=== PATIENT | female | born 1945 | race Caucasian/White ===

== ENCOUNTER 2016-11-29 07:41 | Day surgery (SDC) | payer OTHER, BC ==
[2016-11-29 09:01] LABS: BASOPHIL 0.7 % (0-2.0); EOSINOPHIL 1.5 % (0-4.5); MCH 30.3 pg (25.7-33.7); MEAN CELL VOLUME 91.7 fl (80-96); MEAN PLT VOLUME 7.8 fl (7.5-11.1); NEUTROPHILS 55.5 % (42.8-82.8); PLATELET COUNT 155 K/MM3 (134-434); RDW 15.2 % (11.6-15.6); WHITE BLOOD COUNT 4.7 K/mm3 (4.0-10.0)
[2016-11-29 09:28] LABS: ALBUMIN 3.9 g/dl (3.4-5.0); ALK PHOS 98 U/L (45-117); ANION GAP 4 (8-16); BILIRUBIN,DIRECT 0.1 mg/dL (0.0-0.2); BILIRUBIN,TOTAL 0.8 mg/dL (0.2-1.0); CALCIUM 8.7 mg/dL (8.5-10.1); CO2 31 mmol/L (21-32); GLUCOSE,RANDOM 73 mg/dL (74-106); MAGNESIUM 2.4 mg/dL (1.8-2.4); SGOT/AST 24 U/L (15-37); SGPT/ALT 35 U/L (12-78); TOT PROT 7.5 g/dl (6.4-8.2)
[2016-11-29 09:40] VITALS: PULSE 67
[2016-11-29] MEDS ORDERED: PORTA CATH FLUSH 10 ML IVPUSH ONE (09:40)
[2016-11-29] MEDS ORDERED: TRASTUZUMAB IVPB ONE (10:00)
[2016-11-29] MEDS ORDERED: SODIUM CHLORIDE IVPB ONE (10:00)
[2016-11-29] MEDS ORDERED: SODIUM CHLORIDE 250 ML IV ONE (10:30)
[2016-11-29 11:49] VITALS: BP 145/76; TEMP 97.9
== END 2016-11-29 12:12 | disposition home or self-care (01) ==
LOC: JONCCHEMO 07:41 → J7W 09:24 → JONCCHEMO 12:12
PROVIDERS: ATTEND Internal Medicine Hematology & Oncology
PROC: 3E04305 Introduction of Other Antineoplastic into Central Vein, Percutaneous Approach (ICD-10-PCS; principal; 2016-11-29)
PROC: 3E0437Z Introduction of Electrolytic and Water Balance Substance into Central Vein, Percutaneous Approach (ICD-10-PCS; 2016-11-29)
DX: Z51.11 Encounter for antineoplastic chemotherapy (principal); C16.3 Malignant neoplasm of pyloric antrum; I10 Essential (primary) hypertension; E78.00 Pure hypercholesterolemia, unspecified; M19.91 Primary osteoarthritis, unspecified site; M54.5 Low back pain
CPT/HCPCS: 96361; 96413; J9355; 36415; 80053; 80076; 82378; 83735; 85025

== ENCOUNTER 2016-12-20 07:23 | Day surgery (SDC) | payer OTHER, BC ==
[2016-12-20] MEDS ORDERED: TRASTUZUMAB IVPB ONE (08:00)
[2016-12-20] MEDS ORDERED: SODIUM CHLORIDE IVPB ONE (08:00)
[2016-12-20] MEDS ORDERED: SODIUM CHLORIDE 250 ML IV ONE (08:30)
[2016-12-20] MEDS ORDERED: PORTA CATH FLUSH 10 ML IVPUSH ONE (09:21)
[2016-12-20 09:42] LABS: BASOPHIL 0.7 % (0-2.0); EOSINOPHIL 1.2 % (0-4.5); MCH 30.1 pg (25.7-33.7); MCHC 33.4 g/dl (32.0-36.0); MEAN CELL VOLUME 89.9 fl (80-96); MEAN PLT VOLUME 7.7 fl (7.5-11.1); NEUTROPHILS 46.6 % (42.8-82.8); PLATELET COUNT 166 K/MM3 (134-434); WHITE BLOOD COUNT 5.6 K/mm3 (4.0-10.0)
[2016-12-20 10:07] LABS: ALBUMIN 3.9 g/dl (3.4-5.0); BILIRUBIN,DIRECT 0.1 mg/dL (0.0-0.2); BILIRUBIN,TOTAL 0.7 mg/dL (0.2-1.0); TOT PROT 7.5 g/dl (6.4-8.2)
[2016-12-20 11:04] LABS: ANION GAP 12 (8-16); CALCIUM 8.9 mg/dL (8.5-10.1); CO2 27 mmol/L (21-32); CREATININE 0.8 mg/dL (0.55-1.02); GLUCOSE,RANDOM 103 mg/dL (74-106); MAGNESIUM 2.2 mg/dL (1.8-2.4)
[2016-12-20 11:06] LABS: FERRITIN 12.938 ng/ml (6.9-282.5)
[2016-12-20 13:20] VITALS: BP 131/74; PULSE 60; TEMP 98
== END 2016-12-20 13:23 | disposition home or self-care (01) ==
LOC: JONCCHEMO 07:23 → J7W 09:11 → JONCCHEMO 13:23
PROVIDERS: ATTEND Internal Medicine Hematology & Oncology
PROC: 3E04305 Introduction of Other Antineoplastic into Central Vein, Percutaneous Approach (ICD-10-PCS; principal; 2016-12-20)
PROC: 3E0437Z Introduction of Electrolytic and Water Balance Substance into Central Vein, Percutaneous Approach (ICD-10-PCS; 2016-12-20)
DX: Z51.11 Encounter for antineoplastic chemotherapy (principal); C16.3 Malignant neoplasm of pyloric antrum
CPT/HCPCS: 96361; 96413; J9355; 36415; 80048; 80076; 82728; 83735; 85025

== ENCOUNTER 2017-01-10 07:28 | Day surgery (SDC) | payer OTHER, BC ==
[2017-01-10] MEDS ORDERED: SODIUM CHLORIDE IVPB ONE (08:00)
[2017-01-10] MEDS ORDERED: TRASTUZUMAB IVPB ONE (08:00)
[2017-01-10] MEDS ORDERED: SODIUM CHLORIDE 250 ML IV ONE (08:30)
[2017-01-10 09:35] LABS: BASOPHIL 0.5 % (0-2.0); EOSINOPHIL 1.6 % (0-4.5); MCH 30.3 pg (25.7-33.7); MCHC 33.6 g/dl (32.0-36.0); MEAN CELL VOLUME 90.4 fl (80-96); MEAN PLT VOLUME 7.8 fl (7.5-11.1); PLATELET COUNT 167 K/MM3 (134-434); WHITE BLOOD COUNT 6.6 K/mm3 (4.0-10.0)
[2017-01-10 10:03] LABS: ANION GAP 4 (8-16); BILIRUBIN,DIRECT 0.2 mg/dL (0.0-0.2); CALCIUM 8.9 mg/dL (8.5-10.1); CO2 31 mmol/L (21-32); CREATININE 0.8 mg/dL (0.55-1.02); GLUCOSE,RANDOM 109 mg/dL (74-106); MAGNESIUM 2.4 mg/dL (1.8-2.4); SGOT/AST 28 U/L (15-37); SGPT/ALT 40 U/L (12-78)
[2017-01-10 10:05] LABS: ALK PHOS 88 U/L (45-117); BILIRUBIN,TOTAL 0.7 mg/dL (0.2-1.0); TOT PROT 7.8 g/dl (6.4-8.2)
[2017-01-10 16:19] VITALS: BP 129/70; PULSE 64; TEMP 98.1
== END 2017-01-10 12:30 | disposition home or self-care (01) ==
LOC: JONCCHEMO 07:28 → J7W 11:02 → JONCCHEMO 12:30
PROVIDERS: ATTEND Internal Medicine Hematology & Oncology
DX: Z51.11 Encounter for antineoplastic chemotherapy (principal); C16.3 Malignant neoplasm of pyloric antrum
CPT/HCPCS: 36415; 80053; 80076; 83735; 85025; 96361; 96413; J9355

== ENCOUNTER 2017-01-31 07:41 | Day surgery (SDC) | payer OTHER, BC ==
[2017-01-31 08:58] LABS: BASOPHIL 0.6 % (0-2.0); EOSINOPHIL 1.7 % (0-4.5); MCH 29.5 pg (25.7-33.7); MCHC 32.7 g/dl (32.0-36.0); MEAN CELL VOLUME 90.2 fl (80-96); MEAN PLT VOLUME 7.7 fl (7.5-11.1); NEUTROPHILS 44.4 % (42.8-82.8); PLATELET COUNT 183 K/MM3 (134-434); RDW 14.9 % (11.6-15.6); WHITE BLOOD COUNT 5.1 K/mm3 (4.0-10.0)
[2017-01-31 09:25] LABS: ANION GAP 5 (8-16); CALCIUM 9.3 mg/dL (8.5-10.1); CO2 33 mmol/L (21-32); CREATININE 0.9 mg/dL (0.55-1.02); GLUCOSE,RANDOM 112 mg/dL (74-106)
[2017-01-31 09:27] LABS: ALBUMIN 4.1 g/dl (3.4-5.0); ALK PHOS 107 U/L (45-117); BILIRUBIN,DIRECT < 0.2 mg/dL (0.0-0.2); BILIRUBIN,TOTAL 0.6 mg/dL (0.2-1.0); SGOT/AST 28 U/L (15-37); SGPT/ALT 45 U/L (12-78); TOT PROT 7.9 g/dl (6.4-8.2)
[2017-01-31] MEDS ORDERED: SODIUM CHLORIDE IVPB ONE (10:00)
[2017-01-31] MEDS ORDERED: TRASTUZUMAB IVPB ONE (10:00)
[2017-01-31] MEDS ORDERED: SODIUM CHLORIDE 250 ML IV ONE (10:00)
[2017-01-31 10:59] VITALS: TEMP 97.4
[2017-01-31] MEDS ORDERED: POTASSIUM CHLORIDE TABS 20 MEQ TABLET.ER (FP) PO ONE (11:00)
[2017-01-31] MEDS ORDERED: PORTA CATH FLUSH 10 ML IVPUSH ONE (11:42)
[2017-01-31 12:43] VITALS: BP 105/65; PULSE 58
== END 2017-01-31 12:45 | disposition home or self-care (01) ==
LOC: JONCCHEMO 07:41 → J7W 08:47 → JONCCHEMO 12:45
PROVIDERS: ATTEND Internal Medicine Hematology & Oncology
DX: Z51.11 Encounter for antineoplastic chemotherapy (principal); C34.11 Malignant neoplasm of upper lobe, right bronchus or lung
CPT/HCPCS: 36415; 80048; 80076; 82378; 85025; 96361; 96413; J9355

== ENCOUNTER 2017-02-21 07:24 | Day surgery (SDC) | payer OTHER, BC ==
[2017-02-21] MEDS ORDERED: SODIUM CHLORIDE IVPB ONE (08:00)
[2017-02-21] MEDS ORDERED: TRASTUZUMAB IVPB ONE (08:00)
[2017-02-21] MEDS ORDERED: SODIUM CHLORIDE 250 ML IV ONE (08:30)
[2017-02-21 09:02] LABS: BASOPHIL 0.5 % (0-2.0); EOSINOPHIL 1.3 % (0-4.5); MCH 29.9 pg (25.7-33.7); MCHC 33.2 g/dl (32.0-36.0); MEAN CELL VOLUME 89.8 fl (80-96); MEAN PLT VOLUME 7.7 fl (7.5-11.1); NEUTROPHILS 43.5 % (42.8-82.8); PLATELET COUNT 184 K/MM3 (134-434); RDW 14.7 % (11.6-15.6); WHITE BLOOD COUNT 6.3 K/mm3 (4.0-10.0)
[2017-02-21 09:32] LABS: ALK PHOS 106 U/L (45-117); ANION GAP 6 (8-16); BILIRUBIN,DIRECT 0.1 mg/dL (0.0-0.2); BILIRUBIN,TOTAL 0.6 mg/dL (0.2-1.0); CALCIUM 9.1 mg/dL (8.5-10.1); CO2 29 mmol/L (21-32); CREATININE 0.9 mg/dL (0.55-1.02); GLUCOSE,RANDOM 112 mg/dL (74-106); MAGNESIUM 2.3 mg/dL (1.8-2.4); SGOT/AST 29 U/L (15-37); SGPT/ALT 41 U/L (12-78); TOT PROT 7.9 g/dl (6.4-8.2)
[2017-02-21 12:53] VITALS: BP 135/65; PULSE 60; TEMP 97.9
[2017-02-21] MEDS ORDERED: PORTA CATH FLUSH 10 ML IVPUSH ONE (12:53)
== END 2017-02-21 12:45 | disposition home or self-care (01) ==
LOC: JONCCHEMO 07:24 → J7W 09:47 → JONCCHEMO 12:45
PROVIDERS: ATTEND Internal Medicine Hematology & Oncology
PROC: 3E0S305 Introduction of Other Antineoplastic into Epidural Space, Percutaneous Approach (ICD-10-PCS; principal; 2017-02-21)
PROC: 3E0437Z Introduction of Electrolytic and Water Balance Substance into Central Vein, Percutaneous Approach (ICD-10-PCS; 2017-02-21)
DX: Z51.11 Encounter for antineoplastic chemotherapy (principal); C16.3 Malignant neoplasm of pyloric antrum
CPT/HCPCS: 36415; 80053; 80076; 83735; 85025; 96361; 96413; J9355

== ENCOUNTER 2017-03-14 07:27 | Day surgery (SDC) | payer OTHER, BC ==
[2017-03-14 08:54] LABS: BASOPHIL 0.6 % (0-2.0); EOSINOPHIL 1.3 % (0-4.5); MCH 29.6 pg (25.7-33.7); MEAN CELL VOLUME 89.9 fl (80-96); MEAN PLT VOLUME 7.9 fl (7.5-11.1); NEUTROPHILS 50.2 % (42.8-82.8); PLATELET COUNT 197 K/MM3 (134-434); RDW 15.2 % (11.6-15.6); WHITE BLOOD COUNT 6.1 K/mm3 (4.0-10.0)
[2017-03-14 09:17] LABS: ANION GAP 7 (8-16); BILIRUBIN,DIRECT 0.1 mg/dL (0.0-0.2); BILIRUBIN,TOTAL 0.6 mg/dL (0.2-1.0); CALCIUM 9.1 mg/dL (8.5-10.1); CO2 31 mmol/L (21-32); CREATININE 0.9 mg/dL (0.55-1.02); GLUCOSE,RANDOM 101 mg/dL (74-106); MAGNESIUM 2.6 mg/dL (1.8-2.4); SGPT/ALT 37 U/L (12-78)
[2017-03-14 09:25] LABS: ALK PHOS 103 U/L (45-117); SGOT/AST 24 U/L (15-37)
[2017-03-14 09:28] VITALS: TEMP 97.9
[2017-03-14] MEDS ORDERED: SODIUM CHLORIDE IVPB ONE (10:00)
[2017-03-14] MEDS ORDERED: TRASTUZUMAB IVPB ONE (10:00)
[2017-03-14] MEDS ORDERED: SODIUM CHLORIDE 250 ML IV ONE (10:30)
[2017-03-14] MEDS ORDERED: PORTA CATH FLUSH 10 ML IVPUSH ONE (10:30)
[2017-03-14 11:22] VITALS: BP 126/79; PULSE 55
== END 2017-03-14 11:15 | disposition home or self-care (01) ==
LOC: JONCCHEMO 07:27 → J7W 09:08 → JONCCHEMO 11:15
PROVIDERS: ATTEND Internal Medicine Hematology & Oncology
DX: Z51.11 Encounter for antineoplastic chemotherapy (principal); C16.3 Malignant neoplasm of pyloric antrum
CPT/HCPCS: 36415; 80053; 80076; 82378; 83735; 85025; 96361; 96413; J9355

== ENCOUNTER 2017-04-04 07:20 | Day surgery (SDC) | payer OTHER, BC ==
[2017-04-04 09:17] LABS: BASOPHIL 0.6 % (0-2.0); EOSINOPHIL 1.5 % (0-4.5); MCH 29.7 pg (25.7-33.7); MCHC 33.6 g/dl (32.0-36.0); MEAN CELL VOLUME 88.5 fl (80-96); MEAN PLT VOLUME 7.7 fl (7.5-11.1); NEUTROPHILS 51.6 % (42.8-82.8); PLATELET COUNT 174 K/MM3 (134-434); RDW 15.2 % (11.6-15.6); WHITE BLOOD COUNT 6.5 K/mm3 (4.0-10.0)
[2017-04-04 09:52] LABS: ALK PHOS 102 U/L (45-117); ANION GAP 10 (8-16); BILIRUBIN,DIRECT 0.2 mg/dL (0.0-0.2); BILIRUBIN,TOTAL 0.8 mg/dL (0.2-1.0); CALCIUM 8.8 mg/dL (8.5-10.1); CO2 28 mmol/L (21-32); CREATININE 0.8 mg/dL (0.55-1.02); GLUCOSE,RANDOM 97 mg/dL (74-106); MAGNESIUM 2.4 mg/dL (1.8-2.4); SGOT/AST 26 U/L (15-37); SGPT/ALT 33 U/L (12-78); TOT PROT 7.8 g/dl (6.4-8.2)
[2017-04-04] MEDS ORDERED: SODIUM CHLORIDE IVPB ONE (10:00)
[2017-04-04] MEDS ORDERED: TRASTUZUMAB IVPB ONE (10:00)
[2017-04-04 10:10] VITALS: TEMP 97.6
[2017-04-04] MEDS ORDERED: PORTA CATH FLUSH 10 ML IVPUSH PRN (10:10)
[2017-04-04] MEDS ORDERED: SODIUM CHLORIDE 250 ML IV ONE (10:30)
[2017-04-04 11:48] VITALS: BP 157/57; PULSE 65
== END 2017-04-04 11:35 | disposition home or self-care (01) ==
LOC: JONCCHEMO 07:20 → J7W 09:48 → JONCCHEMO 11:35
PROVIDERS: ATTEND Internal Medicine Hematology & Oncology
DX: Z51.11 Encounter for antineoplastic chemotherapy (principal); C16.3 Malignant neoplasm of pyloric antrum
CPT/HCPCS: 36415; 80053; 80076; 83735; 85025; 96361; 96413; J9355

== ENCOUNTER 2017-04-25 07:16 | Day surgery (SDC) | payer OTHER, BC ==
[2017-04-25] MEDS ORDERED: TRASTUZUMAB IVPB ONE (08:00)
[2017-04-25] MEDS ORDERED: SODIUM CHLORIDE IVPB ONE (08:00)
[2017-04-25] MEDS ORDERED: SODIUM CHLORIDE 250 ML IV ONE (08:30)
[2017-04-25 08:50] LABS: BASOPHIL 0.7 % (0-2.0); EOSINOPHIL 1.6 % (0-4.5); MCH 29.8 pg (25.7-33.7); MCHC 33.3 g/dl (32.0-36.0); MEAN CELL VOLUME 89.5 fl (80-96); NEUTROPHILS 45.7 % (42.8-82.8); PLATELET COUNT 184 K/MM3 (134-434); RDW 14.7 % (11.6-15.6); WHITE BLOOD COUNT 5.9 K/mm3 (4.0-10.0)
[2017-04-25 09:19] LABS: ALBUMIN 4.1 g/dl (3.4-5.0); ALK PHOS 106 U/L (45-117); ANION GAP 8 (8-16); BILIRUBIN,DIRECT < 0.2 mg/dL (0.0-0.2); BILIRUBIN,TOTAL 0.6 mg/dL (0.2-1.0); CALCIUM 8.8 mg/dL (8.5-10.1); CO2 29 mmol/L (21-32); CREATININE 0.8 mg/dL (0.55-1.02); GLUCOSE,RANDOM 92 mg/dL (74-106); MAGNESIUM 2.5 mg/dL (1.8-2.4); SGOT/AST 24 U/L (15-37); SGPT/ALT 35 U/L (12-78); TOT PROT 8.1 g/dl (6.4-8.2)
[2017-04-25 15:25] VITALS: TEMP 97.3
[2017-04-25 15:34] VITALS: BP 127/67; PULSE 50
[2017-04-25] MEDS ORDERED: PORTA CATH FLUSH 10 ML IVPUSH ONE (15:34)
== END 2017-04-25 11:50 | disposition home or self-care (01) ==
LOC: JONCCHEMO 07:16 → J7W 09:54 → JONCCHEMO 11:50
PROVIDERS: ATTEND Internal Medicine Hematology & Oncology
DX: Z51.11 Encounter for antineoplastic chemotherapy (principal); C16.3 Malignant neoplasm of pyloric antrum
CPT/HCPCS: 36415; 80053; 80076; 83735; 85025; 96361; 96413; J9355

== ENCOUNTER 2017-05-15 07:24 | Day surgery (SDC) | payer OTHER, BC ==
[2017-05-15] MEDS ORDERED: TRASTUZUMAB IVPB ONE (08:00)
[2017-05-15] MEDS ORDERED: SODIUM CHLORIDE IVPB ONE (08:00)
[2017-05-15] MEDS ORDERED: SODIUM CHLORIDE 250 ML IV ONE (08:30)
[2017-05-15 08:59] LABS: BASOPHIL 0.7 % (0-2.0); EOSINOPHIL 1.5 % (0-4.5); MCH 29.8 pg (25.7-33.7); MEAN CELL VOLUME 90.3 fl (80-96); MEAN PLT VOLUME 7.8 fl (7.5-11.1); NEUTROPHILS 48.7 % (42.8-82.8); PLATELET COUNT 197 K/MM3 (134-434); RDW 15.7 % (11.6-15.6); WHITE BLOOD COUNT 6.5 K/mm3 (4.0-10.0)
[2017-05-15 09:24] LABS: ALBUMIN 3.9 g/dl (3.4-5.0); ALK PHOS 104 U/L (45-117); ANION GAP 5 (8-16); BILIRUBIN,DIRECT 0.2 mg/dL (0.0-0.2); CALCIUM 8.7 mg/dL (8.5-10.1); CO2 28 mmol/L (21-32); CREATININE 0.9 mg/dL (0.55-1.02); GLUCOSE,RANDOM 115 mg/dL (74-106); MAGNESIUM 2.5 mg/dL (1.8-2.4); SGOT/AST 21 U/L (15-37); SGPT/ALT 36 U/L (12-78); TOT PROT 7.9 g/dl (6.4-8.2)
[2017-05-15 09:34] VITALS: TEMP 97.9
[2017-05-15] MEDS ORDERED: PORTA CATH FLUSH 10 ML IVPUSH ONE (09:37)
[2017-05-15 11:17] VITALS: BP 104/57; PULSE 62
== END 2017-05-15 11:20 | disposition home or self-care (01) ==
LOC: JONCCHEMO 07:24 → J7W 09:24 → JONCCHEMO 11:20
PROVIDERS: ATTEND Internal Medicine Hematology & Oncology
DX: Z51.11 Encounter for antineoplastic chemotherapy (principal); C16.3 Malignant neoplasm of pyloric antrum
CPT/HCPCS: 36415; 80053; 80076; 83735; 85025; 96361; 96413; J9355

== ENCOUNTER 2017-06-06 07:29 | Day surgery (SDC) | payer OTHER, BC ==
[2017-06-06 09:24] LABS: BASO % 0.5 % (0-2.0); EOS # 0.1 #; LYMPH # 2.6; MCH 29.4 pg (25.7-33.7); MCHC 32.2 g/dl (32.0-36.0); MEAN CELL VOLUME 91.2 fl (80-96); MEAN PLT VOLUME 8.3 fl (7.5-11.1); MONO # 0.4 #; NEUT # 3.5 #; NEUT % 52.3 % (42.8-82.8); PLATELET COUNT 196 K/MM3 (134-434); RDW 15.7 % (11.6-15.6); WHITE BLOOD COUNT 6.6 K/mm3 (4.0-10.0)
[2017-06-06 09:54] LABS: ALBUMIN 4.1 g/dl (3.4-5.0); ANION GAP 7 (8-16); BILIRUBIN,DIRECT < 0.2 mg/dL (0.0-0.2); CALCIUM 8.8 mg/dL (8.5-10.1); CO2 30 mmol/L (21-32); GLUCOSE,RANDOM 96 mg/dL (74-106); MAGNESIUM 2.1 mg/dL (1.8-2.4); SGOT/AST 25 U/L (15-37); SGPT/ALT 40 U/L (12-78)
[2017-06-06 09:56] LABS: ALK PHOS 107 U/L (45-117); BILIRUBIN,TOTAL 0.6 mg/dL (0.2-1.0); TOT PROT 8.1 g/dl (6.4-8.2)
[2017-06-06] MEDS ORDERED: SODIUM CHLORIDE IVPB ONE (10:00)
[2017-06-06] MEDS ORDERED: TRASTUZUMAB IVPB ONE (10:00)
[2017-06-06 10:15] VITALS: PULSE 57; TEMP 98.2
[2017-06-06] MEDS ORDERED: SODIUM CHLORIDE 250 ML IV ONE (10:30)
[2017-06-06] MEDS ORDERED: PORTA CATH FLUSH 10 ML IVPUSH ONE (10:49)
[2017-06-06 12:57] VITALS: BP 129/69
== END 2017-06-06 11:55 | disposition home or self-care (01) ==
LOC: JONCCHEMO 07:29 → J7W 09:41 → JONCCHEMO 11:55
PROVIDERS: ATTEND Internal Medicine Hematology & Oncology
DX: Z51.11 Encounter for antineoplastic chemotherapy (principal); C16.3 Malignant neoplasm of pyloric antrum
CPT/HCPCS: 36415; 80053; 80076; 83735; 85025; 96361; 96413; J9355

== ENCOUNTER 2017-06-27 07:25 | Day surgery (SDC) | payer OTHER, BC ==
[2017-06-27] MEDS ORDERED: SODIUM CHLORIDE IVPB ONE (10:00)
[2017-06-27] MEDS ORDERED: TRASTUZUMAB IVPB ONE (10:00)
[2017-06-27 10:24] LABS: BASO % 0.5 % (0-2.0); EOS % 1.2 % (0-4.5); HEMATOCRIT 35.6 % (32.4-45.2); HEMOGLOBIN 11.6 GM/dL (10.7-15.3); LYMPH % 42.1 % (8-40); MCH 29.6 pg (25.7-33.7); MCHC 32.5 g/dl (32.0-36.0); MEAN CELL VOLUME 91.2 fl (80-96); MEAN PLT VOLUME 8.6 fl (7.5-11.1); NEUT % 48.2 % (42.8-82.8); PLATELET COUNT 171 K/MM3 (134-434); RDW 15.4 % (11.6-15.6); WHITE BLOOD COUNT 6.4 K/mm3 (4.0-10.0)
[2017-06-27] MEDS ORDERED: SODIUM CHLORIDE 250 ML IV ONE (10:30)
[2017-06-27 11:17] LABS: ANION GAP 7 (8-16); BLOOD UREA NITROGEN 13 mg/dL (7-18); CALCIUM 8.9 mg/dL (8.5-10.1); CHLORIDE 106 mmol/L (98-107); CO2 29 mmol/L (21-32); CREATININE 0.9 mg/dL (0.55-1.02); GLUCOSE,RANDOM 89 mg/dL (74-106); POTASSIUM 3.3 mmol/L (3.5-5.1); SODIUM 142 mmol/L (136-145)
[2017-06-27 11:21] LABS: ALK PHOS 100 U/L (45-117); BILIRUBIN,DIRECT < 0.2 mg/dL (0.0-0.2); BILIRUBIN,TOTAL 0.6 mg/dL (0.2-1.0); SGOT/AST 28 U/L (15-37); SGPT/ALT 41 U/L (12-78)
[2017-06-27 15:19] VITALS: BP 144/75; PULSE 66; TEMP 97.4
[2017-06-27] MEDS ORDERED: PORTA CATH FLUSH 10 ML IVPUSH ONE (15:19)
== END 2017-06-27 12:15 | disposition home or self-care (01) ==
LOC: JONCCHEMO 07:25 → J7W 09:15 → JONCCHEMO 12:15
PROVIDERS: ATTEND Internal Medicine Hematology & Oncology
DX: Z51.11 Encounter for antineoplastic chemotherapy (principal); C16.3 Malignant neoplasm of pyloric antrum
CPT/HCPCS: 36415; 80048; 80076; 82378; 85025; 96361; 96413; J9355

== ENCOUNTER 2017-07-18 07:22 | Day surgery (SDC) | payer OTHER, BC ==
[2017-07-18] MEDS ORDERED: TRASTUZUMAB IVPB ONE (08:00)
[2017-07-18] MEDS ORDERED: SODIUM CHLORIDE IVPB ONE (08:00)
[2017-07-18] MEDS ORDERED: SODIUM CHLORIDE 250 ML IV ONE (08:30)
[2017-07-18 08:51] LABS: BASO % 0.7 % (0-2.0); HEMATOCRIT 38.9 % (32.4-45.2); HEMOGLOBIN 12.8 GM/dL (10.7-15.3); LYMPH % 44.2 % (8-40); MCH 29.7 pg (25.7-33.7); MEAN CELL VOLUME 89.9 fl (80-96); MEAN PLT VOLUME 8.3 fl (7.5-11.1); MONO % 7.1 % (3.8-10.2); PLATELET COUNT 169 K/MM3 (134-434); RBC 4.33 M/mm3 (3.60-5.2); RDW 15.3 % (11.6-15.6); WHITE BLOOD COUNT 7.1 K/mm3 (4.0-10.0)
[2017-07-18 09:22] LABS: ALBUMIN 4.3 g/dl (3.4-5.0); ANION GAP 7 (8-16); BILIRUBIN,DIRECT 0.2 mg/dL (0.0-0.2); BILIRUBIN,TOTAL 0.7 mg/dL (0.2-1.0); BLOOD UREA NITROGEN 9 mg/dL (7-18); CALCIUM 8.7 mg/dL (8.5-10.1); CHLORIDE 102 mmol/L (98-107); CO2 31 mmol/L (21-32); CREATININE 1.2 mg/dL (0.55-1.02); GLUCOSE,RANDOM 97 mg/dL (74-106); MAGNESIUM 2.1 mg/dL (1.8-2.4); SGOT/AST 25 U/L (15-37); SGPT/ALT 42 U/L (12-78); SODIUM 140 mmol/L (136-145); TOT PROT 8.2 g/dl (6.4-8.2)
[2017-07-18 09:23] LABS: ALK PHOS 105 U/L (45-117)
[2017-07-18] MEDS: POTASSIUM CHLORIDE TABS 20 MEQ TABLET.ER (FP) PO SCH ×2 (10:40→11:40)
[2017-07-18 11:56] VITALS: TEMP 98.2
[2017-07-18] MEDS ORDERED: PORTA CATH FLUSH 10 ML IVPUSH ONE (11:56)
[2017-07-18 17:13] VITALS: BP 156/67; PULSE 72
[2017-07-19 09:39] LABS: URINE APPEARANCE CLEAR; URINE BILIRUBIN NEGATIVE (NEGATIVE); URINE BLOOD NEGATIVE (NEGATIVE); URINE COLOR STRAW; URINE GLUCOSE (UA) NEGATIVE (NEGATIVE); URINE KETONE NEGATIVE (NEGATIVE); URINE LEUK ESTERASE NEGATIVE (NEGATIVE); URINE NITRITE NEGATIVE (NEGATIVE); URINE PROTEIN NEGATIVE (NEGATIVE); URINE UROBILINOGEN NEGATIVE mg/dL (0.2-1.0)
== END 2017-07-18 12:15 | disposition home or self-care (01) ==
LOC: JONCCHEMO 07:22 → J7W 09:28 → JONCCHEMO 12:15
PROVIDERS: ATTEND Internal Medicine Hematology & Oncology
DX: Z51.11 Encounter for antineoplastic chemotherapy (principal); C16.3 Malignant neoplasm of pyloric antrum
CPT/HCPCS: 36415; 80053; 80076; 81003; 82378; 83735; 85025; 87086; 96361; 96413; J9355

== ENCOUNTER 2017-08-08 07:30 | Day surgery (SDC) | payer OTHER, BC ==
[2017-08-08 09:07] LABS: BASO % 0.5 % (0-2.0); EOS % 1.1 % (0-4.5); HEMOGLOBIN 12.1 GM/dL (10.7-15.3); LYMPH % 44.4 % (8-40); MCH 30.6 pg (25.7-33.7); MCHC 33.8 g/dl (32.0-36.0); MEAN CELL VOLUME 90.7 fl (80-96); MONO % 8.1 % (3.8-10.2); NEUT % 45.9 % (42.8-82.8); PLATELET COUNT 183 K/MM3 (134-434); RBC 3.97 M/mm3 (3.60-5.2); RDW 14.9 % (11.6-15.6); WHITE BLOOD COUNT 7.1 K/mm3 (4.0-10.0)
[2017-08-08 09:39] VITALS: TEMP 97.4
[2017-08-08] MEDS ORDERED: PORTA CATH FLUSH 10 ML IVPUSH ONE (09:39)
[2017-08-08 10:00] LABS: ALBUMIN 4.2 g/dl (3.4-5.0); ANION GAP 5 (8-16); BLOOD UREA NITROGEN 17 mg/dL (7-18); CALCIUM 9.1 mg/dL (8.5-10.1); CHLORIDE 103 mmol/L (98-107); CO2 32 mmol/L (21-32); GLUCOSE,RANDOM 82 mg/dL (74-106); POTASSIUM 3.6 mmol/L (3.5-5.1); SODIUM 140 mmol/L (136-145)
[2017-08-08] MEDS ORDERED: SODIUM CHLORIDE IVPB ONE (10:00)
[2017-08-08] MEDS ORDERED: TRASTUZUMAB IVPB ONE (10:00)
[2017-08-08 10:04] LABS: ALK PHOS 96 U/L (45-117); BILIRUBIN,DIRECT < 0.2 mg/dL (0.0-0.2); BILIRUBIN,TOTAL 0.5 mg/dL (0.2-1.0); CREATININE 0.9 mg/dL (0.55-1.02); SGOT/AST 24 U/L (15-37); SGPT/ALT 34 U/L (12-78); TOT PROT 7.9 g/dl (6.4-8.2)
[2017-08-08] MEDS ORDERED: SODIUM CHLORIDE 250 ML IV ONE (10:30)
[2017-08-08 11:01] VITALS: BP 104/52; PULSE 61
== END 2017-08-08 11:02 | disposition home or self-care (01) ==
LOC: JONCCHEMO 07:30 → J7W 10:18 → JONCCHEMO 11:02
PROVIDERS: ATTEND Internal Medicine Hematology & Oncology
PROC: 3E04305 Introduction of Other Antineoplastic into Central Vein, Percutaneous Approach (ICD-10-PCS; principal; 2017-08-08)
PROC: 3E0437Z Introduction of Electrolytic and Water Balance Substance into Central Vein, Percutaneous Approach (ICD-10-PCS; 2017-08-08)
DX: Z51.11 Encounter for antineoplastic chemotherapy (principal); C16.2 Malignant neoplasm of body of stomach
CPT/HCPCS: 36415; 80053; 80076; 85025; 96361; 96413; J9355

== ENCOUNTER 2017-09-30 07:42 | Day surgery (SDC) | payer OTHER, BC ==
[2017-09-30] MEDS ORDERED: TRASTUZUMAB IVPB ONE (10:00)
[2017-09-30] MEDS ORDERED: SODIUM CHLORIDE IVPB ONE (10:00)
[2017-09-30] MEDS ORDERED: SODIUM CHLORIDE 250 ML IV ONE (10:30)
[2017-09-30 10:52] LABS: BASO % 0.4 % (0-2.0); EOS % 1.6 % (0-4.5); HEMATOCRIT 35.5 % (32.4-45.2); HEMOGLOBIN 12.1 GM/dL (10.7-15.3); LYMPH % 42.1 % (8-40); MCH 31.1 pg (25.7-33.7); MCHC 33.9 g/dl (32.0-36.0); MEAN CELL VOLUME 91.7 fl (80-96); MEAN PLT VOLUME 9.1 fl (7.5-11.1); MONO % 6.5 % (3.8-10.2); NEUT % 49.4 % (42.8-82.8); PLATELET COUNT 179 K/MM3 (134-434); RBC 3.87 M/mm3 (3.60-5.2); RDW 14.9 % (11.6-15.6); WHITE BLOOD COUNT 5.7 K/mm3 (4.0-10.0)
[2017-09-30 11:09] LABS: ALBUMIN 3.9 g/dl (3.4-5.0); ANION GAP 5 (8-16); BILIRUBIN,DIRECT < 0.2 mg/dL (0.0-0.2); BILIRUBIN,TOTAL 0.5 mg/dL (0.2-1.0); BLOOD UREA NITROGEN 12 mg/dL (7-18); CALCIUM 8.6 mg/dL (8.5-10.1); CHLORIDE 105 mmol/L (98-107); CO2 31 mmol/L (21-32); CREATININE 0.8 mg/dL (0.55-1.02); GLUCOSE,RANDOM 111 mg/dL (74-106); MAGNESIUM 2.1 mg/dL (1.8-2.4); POTASSIUM 3.2 mmol/L (3.5-5.1); SGOT/AST 24 U/L (15-37); SGPT/ALT 32 U/L (12-78); SODIUM 141 mmol/L (136-145)
[2017-09-30 11:10] LABS: ALK PHOS 92 U/L (45-117)
[2017-09-30] MEDS ORDERED: PORTA CATH FLUSH 10 ML IVPUSH ONE (12:36)
[2017-09-30 15:02] VITALS: BP 148/93; PULSE 79; TEMP 97.9
== END 2017-09-30 13:15 | disposition home or self-care (01) ==
LOC: JONCCHEMO 07:42 → J7W 10:59 → JONCCHEMO 13:15
PROVIDERS: ATTEND Internal Medicine Hematology & Oncology
DX: Z51.11 Encounter for antineoplastic chemotherapy (principal); C16.2 Malignant neoplasm of body of stomach
CPT/HCPCS: 36415; 80053; 80076; 82378; 83735; 85025; 96361; 96413; J9355

== ENCOUNTER 2017-10-21 07:22 | Day surgery (SDC) | payer OTHER, BC ==
[2017-10-21] MEDS ORDERED: SODIUM CHLORIDE IVPB ONE (08:00)
[2017-10-21] MEDS ORDERED: TRASTUZUMAB IVPB ONE (08:00)
[2017-10-21] MEDS ORDERED: SODIUM CHLORIDE 250 ML IV ONE (08:30)
[2017-10-21 10:15] LABS: BASO % 0.4 % (0-2.0); EOS % 1.9 % (0-4.5); HEMOGLOBIN 11.9 GM/dL (10.7-15.3); LYMPH % 45.4 % (8-40); MCH 31.2 pg (25.7-33.7); MEAN CELL VOLUME 91.8 fl (80-96); MEAN PLT VOLUME 8.4 fl (7.5-11.1); MONO % 6.8 % (3.8-10.2); NEUT % 45.5 % (42.8-82.8); PLATELET COUNT 175 K/MM3 (134-434); RBC 3.81 M/mm3 (3.60-5.2); RDW 15.3 % (11.6-15.6); WHITE BLOOD COUNT 5.7 K/mm3 (4.0-10.0)
[2017-10-21 10:43] LABS: ALBUMIN 4.3 g/dl (3.4-5.0); ANION GAP 9 (8-16); BILIRUBIN,TOTAL 0.5 mg/dL (0.2-1.0); BLOOD UREA NITROGEN 13 mg/dL (7-18); CALCIUM 9.3 mg/dL (8.5-10.1); CHLORIDE 103 mmol/L (98-107); CO2 30 mmol/L (21-32); CREATININE 0.9 mg/dL (0.55-1.02); GLUCOSE,RANDOM 92 mg/dL (74-106); POTASSIUM 3.6 mmol/L (3.5-5.1); SGOT/AST 27 U/L (15-37); SGPT/ALT 38 U/L (12-78); SODIUM 142 mmol/L (136-145); TOT PROT 7.8 g/dl (6.4-8.2)
[2017-10-21 10:44] LABS: ALK PHOS 91 U/L (45-117)
[2017-10-21 19:14] VITALS: TEMP 98
[2017-10-21 19:22] VITALS: BP 133/84; PULSE 76
[2017-10-21] MEDS ORDERED: PORTA CATH FLUSH 10 ML IVPUSH ONE (19:22)
== END 2017-10-21 13:00 | disposition home or self-care (01) ==
LOC: JONCCHEMO 07:22 → J7W 10:10 → JONCCHEMO 13:00
PROVIDERS: ATTEND Internal Medicine Hematology & Oncology
DX: Z51.11 Encounter for antineoplastic chemotherapy (principal); C16.2 Malignant neoplasm of body of stomach
CPT/HCPCS: 36415; 80053; 85025; 96361; 96413; J9355

== ENCOUNTER 2017-11-11 07:27 | Day surgery (SDC) | payer OTHER, BC ==
[2017-11-11] MEDS ORDERED: TRASTUZUMAB IVPB ONE (08:00)
[2017-11-11] MEDS ORDERED: SODIUM CHLORIDE IVPB ONE (08:00)
[2017-11-11] MEDS ORDERED: SODIUM CHLORIDE 250 ML IV ONE (08:30)
[2017-11-11 10:21] LABS: BASO % 0.7 % (0-2.0); EOS % 1.7 % (0-4.5); HEMATOCRIT 35.7 % (32.4-45.2); HEMOGLOBIN 11.9 GM/dL (10.7-15.3); LYMPH % 45.8 % (8-40); MCH 30.5 pg (25.7-33.7); MCHC 33.3 g/dl (32.0-36.0); MEAN CELL VOLUME 91.7 fl (80-96); MEAN PLT VOLUME 8.2 fl (7.5-11.1); MONO % 6.8 % (3.8-10.2); PLATELET COUNT 181 K/MM3 (134-434); RBC 3.89 M/mm3 (3.60-5.2); WHITE BLOOD COUNT 6.3 K/mm3 (4.0-10.0)
[2017-11-11 11:00] LABS: ALBUMIN 4.2 g/dl (3.4-5.0); MAGNESIUM 2.5 mg/dL (1.8-2.4)
[2017-11-11 11:05] LABS: ALK PHOS 89 U/L (45-117); BILIRUBIN,DIRECT < 0.2 mg/dL (0.0-0.2); BILIRUBIN,TOTAL 0.5 mg/dL (0.2-1.0); SGOT/AST 28 U/L (15-37); SGPT/ALT 43 U/L (12-78); TOT PROT 8.1 g/dl (6.4-8.2)
[2017-11-11 12:17] LABS: ANION GAP 5 (8-16); BLOOD UREA NITROGEN 10 mg/dL (7-18); CALCIUM 9.1 mg/dL (8.5-10.1); CHLORIDE 106 mmol/L (98-107); CO2 32 mmol/L (21-32); CREATININE 0.9 mg/dL (0.55-1.02); GLUCOSE,RANDOM 82 mg/dL (74-106); POTASSIUM 3.6 mmol/L (3.5-5.1); SODIUM 143 mmol/L (136-145)
[2017-11-11 15:48] VITALS: TEMP 98.2
[2017-11-11 16:04] VITALS: BP 146/66; PULSE 66
== END 2017-11-11 13:00 | disposition home or self-care (01) ==
LOC: JONCCHEMO 07:27 → J7W 10:59 → JONCCHEMO 13:00
PROVIDERS: ATTEND Internal Medicine Hematology & Oncology
DX: Z51.11 Encounter for antineoplastic chemotherapy (principal); C16.2 Malignant neoplasm of body of stomach
CPT/HCPCS: 36415; 80053; 80076; 83735; 85025; 96361; 96413; J9355

== ENCOUNTER 2017-12-02 07:21 | Day surgery (SDC) | payer OTHER, BC ==
[2017-12-02 09:07] LABS: BASO % 0.4 % (0-2.0); HEMATOCRIT 35.9 % (32.4-45.2); LYMPH % 38.7 % (8-40); MCH 30.6 pg (25.7-33.7); MCHC 33.5 g/dl (32.0-36.0); MEAN CELL VOLUME 91.3 fl (80-96); MEAN PLT VOLUME 8.3 fl (7.5-11.1); MONO % 6.7 % (3.8-10.2); NEUT % 52.2 % (42.8-82.8); PLATELET COUNT 181 K/MM3 (134-434); RBC 3.93 M/mm3 (3.60-5.2); WHITE BLOOD COUNT 5.8 K/mm3 (4.0-10.0)
[2017-12-02] MEDS ORDERED: PORTA CATH FLUSH 10 ML IVPUSH ONE (09:55)
[2017-12-02 09:56] VITALS: BP 156/80; PULSE 59; TEMP 97.6
[2017-12-02] MEDS ORDERED: TRASTUZUMAB IVPB ONE (10:00)
[2017-12-02] MEDS ORDERED: SODIUM CHLORIDE IVPB ONE (10:00)
[2017-12-02 10:03] LABS: ALBUMIN 4.1 g/dl (3.4-5.0); ANION GAP 6 (8-16); BILIRUBIN,DIRECT < 0.2 mg/dL (0.0-0.2); BLOOD UREA NITROGEN 14 mg/dL (7-18); CHLORIDE 107 mmol/L (98-107); CO2 30 mmol/L (21-32); CREATININE 0.9 mg/dL (0.55-1.02); GLUCOSE,RANDOM 87 mg/dL (74-106); MAGNESIUM 2.3 mg/dL (1.8-2.4); POTASSIUM 3.4 mmol/L (3.5-5.1); SGOT/AST 27 U/L (15-37); SGPT/ALT 41 U/L (12-78); SODIUM 143 mmol/L (136-145)
[2017-12-02 10:06] LABS: ALK PHOS 98 U/L (45-117); BILIRUBIN,TOTAL 0.5 mg/dL (0.2-1.0); TOT PROT 8.1 g/dl (6.4-8.2)
[2017-12-02] MEDS ORDERED: SODIUM CHLORIDE 250 ML IV ONE (10:30)
== END 2017-12-02 11:40 | disposition home or self-care (01) ==
LOC: JONCCHEMO 07:21 → J7W 09:37 → JONCCHEMO 11:40
PROVIDERS: ATTEND Internal Medicine Hematology & Oncology
DX: Z51.11 Encounter for antineoplastic chemotherapy (principal); C16.2 Malignant neoplasm of body of stomach
CPT/HCPCS: 36415; 80053; 80076; 83735; 85025; 96361; 96413; J9355

== ENCOUNTER 2018-01-13 07:33 | Day surgery (SDC) | payer OTHER, BC ==
[2018-01-13 08:58] LABS: BASO % 0.5 % (0-2.0); EOS % 1.7 % (0-4.5); HEMATOCRIT 35.9 % (32.4-45.2); MCH 30.8 pg (25.7-33.7); MCHC 33.6 g/dl (32.0-36.0); MEAN CELL VOLUME 91.6 fl (80-96); MEAN PLT VOLUME 7.8 fl (7.5-11.1); MONO % 8.2 % (3.8-10.2); NEUT % 52.6 % (42.8-82.8); PLATELET COUNT 188 K/MM3 (134-434); RBC 3.92 M/mm3 (3.60-5.2); RDW 14.9 % (11.6-15.6); WHITE BLOOD COUNT 6.1 K/mm3 (4.0-10.0)
[2018-01-13 09:34] LABS: ALBUMIN 4.1 g/dl (3.4-5.0); ALK PHOS 95 U/L (45-117); ANION GAP 5 (8-16); BILIRUBIN,DIRECT < 0.2 mg/dL (0.0-0.2); BILIRUBIN,TOTAL 0.5 mg/dL (0.2-1.0); BLOOD UREA NITROGEN 12 mg/dL (7-18); CALCIUM 9.1 mg/dL (8.5-10.1); CHLORIDE 108 mmol/L (98-107); CO2 31 mmol/L (21-32); GLUCOSE,RANDOM 91 mg/dL (74-106); MAGNESIUM 2.2 mg/dL (1.8-2.4); POTASSIUM 3.4 mmol/L (3.5-5.1); SGOT/AST 24 U/L (15-37); SGPT/ALT 36 U/L (12-78); SGPT/ALT 37 U/L (12-78); SODIUM 144 mmol/L (136-145); TOT PROT 8.1 g/dl (6.4-8.2)
[2018-01-13 09:35] LABS: ALK PHOS 92 U/L (45-117); BILIRUBIN,TOTAL 0.4 mg/dL (0.2-1.0); TOT PROT 8.1 g/dl (6.4-8.2)
[2018-01-13] MEDS ORDERED: TRASTUZUMAB IVPB ONE (10:00)
[2018-01-13] MEDS ORDERED: SODIUM CHLORIDE IVPB ONE (10:00)
[2018-01-13] MEDS ORDERED: POTASSIUM CHLORIDE TABS 20 MEQ TABLET.ER (FP) PO ONE (10:15)
[2018-01-13] MEDS ORDERED: PORTA CATH FLUSH 10 ML IVPUSH ONE (10:26)
[2018-01-13] MEDS ORDERED: SODIUM CHLORIDE 250 ML IV ONE ×2 (10:30→12:00)
[2018-01-13] MEDS ORDERED: DEXAMETHASONE SOD PHOSPHATE 4 MG/1 ML VIAL IVPB ONE (12:00)
[2018-01-13] MEDS ORDERED: DEXAMETHASONE SOD PHOSPHATE 10 MG/1 ML VIAL ONE (12:14)
[2018-01-13 17:04] VITALS: BP 150/75; PULSE 75
[2018-01-13 17:07] VITALS: TEMP 97.8
== END 2018-01-13 14:50 | disposition home or self-care (01) ==
LOC: JONCCHEMO 07:33 → J7W 09:28 → JONCCHEMO 14:50
PROVIDERS: ATTEND Internal Medicine Hematology & Oncology
DX: Z51.11 Encounter for antineoplastic chemotherapy (principal); C16.2 Malignant neoplasm of body of stomach
CPT/HCPCS: 36415; 80053; 80076; 83735; 85025; 96361; 96367; 96375; 96413; J1100; J9355

== ENCOUNTER 2018-02-03 07:47 | Day surgery (SDC) | payer OTHER, BC ==
[2018-02-03 08:51] VITALS: TEMP 97.9
[2018-02-03 09:19] LABS: BASO % 0.6 % (0-2.0); EOS % 1.5 % (0-4.5); HEMATOCRIT 37.1 % (32.4-45.2); HEMOGLOBIN 12.2 GM/dL (10.7-15.3); LYMPH % 40.6 % (8-40); MCH 30.1 pg (25.7-33.7); MEAN CELL VOLUME 91.4 fl (80-96); MEAN PLT VOLUME 7.9 fl (7.5-11.1); MONO % 6.3 % (3.8-10.2); PLATELET COUNT 185 K/MM3 (134-434); RBC 4.06 M/mm3 (3.60-5.2); RDW 14.6 % (11.6-15.6); WHITE BLOOD COUNT 5.4 K/mm3 (4.0-10.0)
[2018-02-03 09:43] LABS: ALK PHOS 92 U/L (45-117); ANION GAP 7 MMOL/L (8-16); BILIRUBIN,DIRECT < 0.2 mg/dL (0.0-0.2); BILIRUBIN,TOTAL 0.6 mg/dL (0.2-1.0); BLOOD UREA NITROGEN 12 mg/dL (7-18); CALCIUM 9.3 mg/dL (8.5-10.1); CHLORIDE 104 mmol/L (98-107); CO2 33 mmol/L (21-32); CREATININE 0.9 mg/dL (0.55-1.02); GLUCOSE,RANDOM 124 mg/dL (74-106); MAGNESIUM 2.3 mg/dL (1.8-2.4); POTASSIUM 3.4 mmol/L (3.5-5.1); SGOT/AST 25 U/L (15-37); SGOT/AST 27 U/L (15-37); SGPT/ALT 37 U/L (12-78); SODIUM 144 mmol/L (136-145); TOT PROT 7.8 g/dl (6.4-8.2)
[2018-02-03 09:44] LABS: ALK PHOS 88 U/L (45-117)
[2018-02-03] MEDS ORDERED: TRASTUZUMAB IVPB ONE (10:00)
[2018-02-03] MEDS ORDERED: SODIUM CHLORIDE IVPB ONE (10:00)
[2018-02-03] MEDS ORDERED: POTASSIUM CHLORIDE TABS 20 MEQ TABLET.ER (FP) PO ONE (10:09)
[2018-02-03] MEDS ORDERED: SODIUM CHLORIDE 250 ML IV ONE (10:30)
[2018-02-03] MEDS ORDERED: PORTA CATH FLUSH 10 ML IVPUSH ONE (16:32)
[2018-02-03 16:34] VITALS: BP 154/82; PULSE 56
== END 2018-02-03 11:40 | disposition home or self-care (01) ==
LOC: JONCCHEMO 07:47 → J7W 09:32 → JONCCHEMO 11:40
PROVIDERS: ATTEND Internal Medicine Hematology & Oncology
DX: Z51.11 Encounter for antineoplastic chemotherapy (principal); C16.2 Malignant neoplasm of body of stomach
CPT/HCPCS: 36415; 80053; 80076; 83735; 85025; 96361; 96413; J9355

== ENCOUNTER 2018-02-24 07:32 | Day surgery (SDC) | payer OTHER, BC ==
[2018-02-24] MEDS ORDERED: TRASTUZUMAB IVPB ONE (08:00)
[2018-02-24] MEDS ORDERED: SODIUM CHLORIDE IVPB ONE (08:00)
[2018-02-24] MEDS ORDERED: SODIUM CHLORIDE 250 ML IV ONE (08:30)
[2018-02-24 09:27] LABS: BASO % 0.5 % (0-2.0); HEMATOCRIT 38.8 % (32.4-45.2); HEMOGLOBIN 12.9 GM/dL (10.7-15.3); LYMPH % 39.8 % (8-40); MCHC 33.1 g/dl (32.0-36.0); MEAN CELL VOLUME 90.6 fl (80-96); MEAN PLT VOLUME 8.2 fl (7.5-11.1); MONO % 8.3 % (3.8-10.2); NEUT % 50.4 % (42.8-82.8); PLATELET COUNT 171 K/MM3 (134-434); RBC 4.28 M/mm3 (3.60-5.2); RDW 14.8 % (11.6-15.6); WHITE BLOOD COUNT 6.6 K/mm3 (4.0-10.0)
[2018-02-24 09:54] LABS: ALBUMIN 4.5 g/dl (3.4-5.0); ALK PHOS 100 U/L (45-117); ANION GAP 10 MMOL/L (8-16); BILIRUBIN,TOTAL 0.7 mg/dL (0.2-1.0); BLOOD UREA NITROGEN 9 mg/dL (7-18); CALCIUM 9.6 mg/dL (8.5-10.1); CHLORIDE 107 mmol/L (98-107); CO2 28 mmol/L (21-32); CREATININE 0.9 mg/dL (0.55-1.3); GLUCOSE,RANDOM 97 mg/dL (74-106); POTASSIUM 3.2 mmol/L (3.5-5.1); SGOT/AST 26 U/L (15-37); SGPT/ALT 39 U/L (13-61); SODIUM 145 mmol/L (136-145); TOT PROT 8.8 g/dl (6.4-8.2)
[2018-02-24 09:55] LABS: ALBUMIN 4.5 g/dl (3.4-5.0); BILIRUBIN,DIRECT 0.2 mg/dL (0.0-0.2); MAGNESIUM 2.3 mg/dL (1.8-2.4)
[2018-02-24 09:58] LABS: BILIRUBIN,TOTAL 0.7 mg/dL (0.2-1.0); TOT PROT 8.8 g/dl (6.4-8.2)
[2018-02-24] MEDS ORDERED: amLODIPine BESYLATE 5 MG TABLET (FP) PO ONE (10:15)
[2018-02-24] MEDS: POTASSIUM CHLORIDE TABS 20 MEQ TABLET.ER (FP) PO SCH ×2 (10:42→11:45)
[2018-02-24 15:54] VITALS: BP 146/75; PULSE 67; TEMP 98.4
[2018-02-24] MEDS ORDERED: PORTA CATH FLUSH 10 ML IVPUSH ONE (15:54)
== END 2018-02-24 12:45 | disposition home or self-care (01) ==
LOC: JONCCHEMO 07:32 → J7W 09:55 → JONCCHEMO 12:45
PROVIDERS: ATTEND Internal Medicine Hematology & Oncology
DX: Z51.11 Encounter for antineoplastic chemotherapy (principal); C16.2 Malignant neoplasm of body of stomach
CPT/HCPCS: 36415; 80053; 80076; 83735; 85025; 96361; 96413; J9355

== ENCOUNTER 2018-04-07 07:25 | Day surgery (SDC) | payer OTHER, BC ==
[2018-04-07] MEDS ORDERED: SODIUM CHLORIDE IVPB ONE (08:00)
[2018-04-07] MEDS ORDERED: TRASTUZUMAB IVPB ONE (08:00)
[2018-04-07] MEDS ORDERED: SODIUM CHLORIDE 250 ML IV ONE (08:30)
[2018-04-07 08:47] VITALS: TEMP 98
[2018-04-07 09:35] LABS: BASO % 0.4 % (0-2.0); EOS % 1.6 % (0-4.5); HEMATOCRIT 37.5 % (32.4-45.2); HEMOGLOBIN 12.3 GM/dL (10.7-15.3); LYMPH % 38.7 % (8-40); MCH 29.8 pg (25.7-33.7); MCHC 32.9 g/dl (32.0-36.0); MEAN CELL VOLUME 90.7 fl (80-96); MEAN PLT VOLUME 8.3 fl (7.5-11.1); MONO % 6.6 % (3.8-10.2); NEUT % 52.7 % (42.8-82.8); PLATELET COUNT 168 K/MM3 (134-434); RBC 4.13 M/mm3 (3.60-5.2); RDW 15.1 % (11.6-15.6); WHITE BLOOD COUNT 6.1 K/mm3 (4.0-10.0)
[2018-04-07] MEDS ORDERED: amLODIPine BESYLATE 5 MG TABLET (FP) PO ONE ×2 (10:15→11:00)
[2018-04-07 10:50] LABS: ALBUMIN 4.2 g/dl (3.4-5.0); ALK PHOS 105 U/L (45-117); ANION GAP 5 MMOL/L (8-16); BILIRUBIN,DIRECT 0.1 mg/dL (0.0-0.2); BILIRUBIN,TOTAL 0.4 mg/dL (0.2-1); BLOOD UREA NITROGEN 18 mg/dL (7-18); CALCIUM 9.6 mg/dL (8.5-10.1); CHLORIDE 106 mmol/L (98-107); CO2 32 mmol/L (21-32); CREATININE 1.2 mg/dL (0.55-1.3); GLUCOSE,RANDOM 91 mg/dL (74-106); MAGNESIUM 2.5 mg/dL (1.8-2.4); POTASSIUM 3.7 mmol/L (3.5-5.1); SGOT/AST 28 U/L (15-37); SGPT/ALT 44 U/L (13-61); SODIUM 142 mmol/L (136-145); TOT PROT 8.2 g/dl (6.4-8.2)
[2018-04-07] MEDS ORDERED: PORTA CATH FLUSH 10 ML IVPUSH ONE (11:17)
[2018-04-07 14:26] VITALS: BP 147/69; PULSE 59
--- NOTE | 2018-04-07 15:05 | EKG ---
Test Reason : Blood Pressure : / mmHG Vent. Rate : 058 BPM Atrial Rate : 058 BPM P-R Int : 238 ms QRS Dur : 092 ms QT Int : 438 ms P-R-T Axes : 049 -14 -56 degrees QTc Int : 429 ms SINUS BRADYCARDIA WITH 1ST DEGREE A-V BLOCK SEPTAL INFARCT (CITED ON OR BEFORE 07-APR-2018) ABNORMAL ECG WHEN COMPARED WITH ECG OF 07-APR-2018 11:21, NO SIGNIFICANT CHANGE WAS FOUND Confirmed by KATHY PEREZ MD ([id number]) on 04/07/2018 3:04:57 PM Referred By: RIVER [address] DR Confirmed By:KATHY PEREZ MD
== END 2018-04-07 13:15 | disposition home or self-care (01) ==
LOC: JONCCHEMO 07:25 → J7W 09:56 → JONCCHEMO 13:15
PROVIDERS: ATTEND Internal Medicine Hematology & Oncology
PROC: 3E04305 Introduction of Other Antineoplastic into Central Vein, Percutaneous Approach (ICD-10-PCS; principal; 2018-04-07)
PROC: 3E0437Z Introduction of Electrolytic and Water Balance Substance into Central Vein, Percutaneous Approach (ICD-10-PCS; 2018-04-07)
DX: Z51.11 Encounter for antineoplastic chemotherapy (principal); C16.3 Malignant neoplasm of pyloric antrum; I10 Essential (primary) hypertension; E78.00 Pure hypercholesterolemia, unspecified
CPT/HCPCS: 36415; 80053; 80076; 82378; 83735; 85025; 93005; 93010; 96361; 96413; J9355

== ENCOUNTER 2018-04-28 07:29 | Day surgery (SDC) | payer OTHER, BC ==
[2018-04-28 09:28] LABS: BASO % 0.3 % (0-2.0); EOS % 1.5 % (0-4.5); HEMATOCRIT 38.6 % (32.4-45.2); HEMOGLOBIN 12.7 GM/dL (10.7-15.3); LYMPH % 35.4 % (8-40); MCH 29.9 pg (25.7-33.7); MCHC 32.8 g/dl (32.0-36.0); MEAN CELL VOLUME 91.2 fl (80-96); MEAN PLT VOLUME 8.2 fl (7.5-11.1); MONO % 9.1 % (3.8-10.2); NEUT % 53.7 % (42.8-82.8); PLATELET COUNT 163 K/MM3 (134-434); RBC 4.24 M/mm3 (3.60-5.2); RDW 15.3 % (11.6-15.6)
[2018-04-28] MEDS ORDERED: TRASTUZUMAB IVPB ONE (10:00)
[2018-04-28] MEDS ORDERED: SODIUM CHLORIDE IVPB ONE (10:00)
[2018-04-28 10:24] LABS: ALBUMIN 4.1 g/dl (3.4-5.0); ALK PHOS 94 U/L (45-117); ANION GAP 7 MMOL/L (8-16); BILIRUBIN,DIRECT 0.1 mg/dL (0.0-0.2); BILIRUBIN,TOTAL 0.4 mg/dL (0.2-1); BLOOD UREA NITROGEN 10 mg/dL (7-18); CALCIUM 8.8 mg/dL (8.5-10.1); CHLORIDE 107 mmol/L (98-107); CO2 27 mmol/L (21-32); GLUCOSE,RANDOM 97 mg/dL (74-106); MAGNESIUM 2.4 mg/dL (1.8-2.4); POTASSIUM 3.4 mmol/L (3.5-5.1); SGOT/AST 23 U/L (15-37); SGPT/ALT 33 U/L (13-61); SODIUM 141 mmol/L (136-145); TOT PROT 8.1 g/dl (6.4-8.2)
[2018-04-28] MEDS ORDERED: SODIUM CHLORIDE 250 ML IV ONE (10:30)
[2018-04-28] MEDS: POTASSIUM CHLORIDE TABS 20 MEQ TABLET.ER (FP) PO SCH ×2 (11:28→12:06)
[2018-04-28 12:44] VITALS: PULSE 60; TEMP 98
[2018-04-28 12:52] VITALS: BP 107/65
[2018-04-28] MEDS ORDERED: PORTA CATH FLUSH 10 ML IVPUSH ONE (12:52)
== END 2018-04-28 12:10 | disposition home or self-care (01) ==
LOC: JONCCHEMO 07:29 → J7W 09:56 → JONCCHEMO 12:10
PROVIDERS: ATTEND Internal Medicine Hematology & Oncology
DX: Z51.11 Encounter for antineoplastic chemotherapy (principal); C16.3 Malignant neoplasm of pyloric antrum
CPT/HCPCS: 36415; 80053; 80076; 82378; 83735; 85025; 96361; 96413; J9355

== ENCOUNTER 2018-05-19 07:16 | Day surgery (SDC) | payer OTHER, BC ==
[2018-05-19 09:20] LABS: BASO % 0.7 % (0-2.0); EOS % 1.7 % (0-4.5); HEMOGLOBIN 13.2 GM/dL (10.7-15.3); LYMPH % 45.1 % (8-40); MCH 31.8 pg (25.7-33.7); MCHC 34.7 g/dl (32.0-36.0); MEAN CELL VOLUME 91.6 fl (80-96); MEAN PLT VOLUME 8.4 fl (7.5-11.1); MONO % 6.7 % (3.8-10.2); NEUT % 45.8 % (42.8-82.8); PLATELET COUNT 181 K/MM3 (134-434); RBC 4.15 M/mm3 (3.60-5.2); WHITE BLOOD COUNT 5.6 K/mm3 (4.0-10.0)
[2018-05-19] MEDS ORDERED: amLODIPine BESYLATE 5 MG TABLET (FP) PO PRN (09:42)
[2018-05-19 09:51] LABS: ALBUMIN 4.1 g/dl (3.4-5.0); ALK PHOS 98 U/L (45-117); ANION GAP 6 MMOL/L (8-16); BILIRUBIN,TOTAL 0.6 mg/dL (0.2-1); BLOOD UREA NITROGEN 11 mg/dL (7-18); CHLORIDE 106 mmol/L (98-107); CO2 29 mmol/L (21-32); CREATININE 0.9 mg/dL (0.55-1.3); GLUCOSE,RANDOM 99 mg/dL (74-106); POTASSIUM 3.4 mmol/L (3.5-5.1); SGOT/AST 33 U/L (15-37); SGPT/ALT 39 U/L (13-61); SODIUM 141 mmol/L (136-145); TOT PROT 8.3 g/dl (6.4-8.2)
[2018-05-19 09:53] LABS: ALBUMIN 4.1 g/dl (3.4-5.0); BILIRUBIN,DIRECT 0.1 mg/dL (0.0-0.2); BILIRUBIN,TOTAL 0.6 mg/dL (0.2-1); MAGNESIUM 2.3 mg/dL (1.8-2.4); TOT PROT 8.3 g/dl (6.4-8.2)
[2018-05-19] MEDS ORDERED: SODIUM CHLORIDE IVPB ONE (10:00)
[2018-05-19] MEDS ORDERED: TRASTUZUMAB IVPB ONE (10:00)
[2018-05-19] MEDS ORDERED: SODIUM CHLORIDE 250 ML IV ONE (10:30)
[2018-05-19 16:09] VITALS: TEMP 97.3
[2018-05-19] MEDS ORDERED: PORTA CATH FLUSH 10 ML IVPUSH ONE (16:09)
[2018-05-19 16:12] VITALS: BP 114/59; PULSE 54
== END 2018-05-19 11:30 | disposition home or self-care (01) ==
LOC: JONCCHEMO 07:16 → J7W 09:29 → JONCCHEMO 11:30
PROVIDERS: ATTEND Internal Medicine Hematology & Oncology
DX: Z51.11 Encounter for antineoplastic chemotherapy (principal); C16.3 Malignant neoplasm of pyloric antrum
CPT/HCPCS: 36415; 80053; 80076; 83735; 85025; 96361; 96413; J9355

== ENCOUNTER 2018-06-16 05:44 | Day surgery (SDC) | payer OTHER, BC ==
[2018-06-16] MEDS ORDERED: TRASTUZUMAB IVPB ONE (08:00)
[2018-06-16] MEDS ORDERED: SODIUM CHLORIDE IVPB ONE (08:00)
[2018-06-16] MEDS ORDERED: SODIUM CHLORIDE 250 ML IV ONE (08:30)
[2018-06-16 09:06] LABS: BASO % 0.5 % (0-2.0); EOS % 1.3 % (0-4.5); HEMATOCRIT 37.9 % (32.4-45.2); HEMOGLOBIN 13.3 GM/dL (10.7-15.3); LYMPH % 38.1 % (8-40); MCH 32.1 pg (25.7-33.7); MCHC 35.1 g/dl (32.0-36.0); MEAN CELL VOLUME 91.4 fl (80-96); MEAN PLT VOLUME 8.5 fl (7.5-11.1); MONO % 6.5 % (3.8-10.2); NEUT % 53.6 % (42.8-82.8); PLATELET COUNT 215 K/MM3 (134-434); RBC 4.15 M/mm3 (3.60-5.2); RDW 15.1 % (11.6-15.6); WHITE BLOOD COUNT 6.8 K/mm3 (4.0-10.0)
[2018-06-16 09:29] LABS: ANION GAP 3 MMOL/L (8-16); BLOOD UREA NITROGEN 14 mg/dL (7-18); CALCIUM 8.9 mg/dL (8.5-10.1); CHLORIDE 105 mmol/L (98-107); CO2 31 mmol/L (21-32); GLUCOSE,RANDOM 105 mg/dL (74-106); MAGNESIUM 2.6 mg/dL (1.8-2.4); POTASSIUM 4.3 mmol/L (3.5-5.1); SODIUM 138 mmol/L (136-145)
[2018-06-16 10:48] LABS: ALBUMIN 4.2 g/dl (3.4-5.0); ALK PHOS 100 U/L (45-117); BILIRUBIN,DIRECT 0.1 mg/dL (0.0-0.2); BILIRUBIN,TOTAL 0.7 mg/dL (0.2-1); SGOT/AST 30 U/L (15-37); SGPT/ALT 40 U/L (13-61); TOT PROT 8.3 g/dl (6.4-8.2)
[2018-06-16 16:32] VITALS: TEMP 97.4
[2018-06-16 16:35] VITALS: BP 129/59; PULSE 80
== END 2018-06-16 13:15 | disposition home or self-care (01) ==
LOC: JONCCHEMO 05:44 → J7W 11:07 → JONCCHEMO 13:15
PROVIDERS: ATTEND Internal Medicine Hematology & Oncology
DX: Z51.11 Encounter for antineoplastic chemotherapy (principal); C16.3 Malignant neoplasm of pyloric antrum
CPT/HCPCS: 36415; 80048; 80076; 83735; 85025; 96361; 96413; J9355

== ENCOUNTER 2018-07-07 06:29 | Day surgery (SDC) | payer OTHER, BC ==
[2018-07-07 09:02] LABS: BASO % 0.5 % (0-2.0); EOS % 1.1 % (0-4.5); HEMATOCRIT 36.1 % (32.4-45.2); HEMOGLOBIN 12.8 GM/dL (10.7-15.3); LYMPH % 47.6 % (8-40); MCH 32.6 pg (25.7-33.7); MCHC 35.5 g/dl (32.0-36.0); MEAN PLT VOLUME 8.4 fl (7.5-11.1); MONO % 7.1 % (3.8-10.2); NEUT % 43.7 % (42.8-82.8); PLATELET COUNT 172 K/MM3 (134-434); RBC 3.93 M/mm3 (3.60-5.2); RDW 14.8 % (11.6-15.6); WHITE BLOOD COUNT 6.2 K/mm3 (4.0-10.0)
[2018-07-07 09:29] LABS: ALBUMIN 4.4 g/dl (3.4-5.0); ALK PHOS 95 U/L (45-117); ANION GAP 9 MMOL/L (8-16); BILIRUBIN,DIRECT 0.1 mg/dL (0.0-0.2); BILIRUBIN,TOTAL 0.3 mg/dL (0.2-1); BLOOD UREA NITROGEN 21 mg/dL (7-18); CALCIUM 9.2 mg/dL (8.5-10.1); CHLORIDE 107 mmol/L (98-107); CO2 27 mmol/L (21-32); GLUCOSE,RANDOM 110 mg/dL (74-106); MAGNESIUM 2.2 mg/dL (1.8-2.4); POTASSIUM 3.5 mmol/L (3.5-5.1); SGOT/AST 27 U/L (15-37); SGPT/ALT 36 U/L (13-61); SODIUM 142 mmol/L (136-145); TOT PROT 8.2 g/dl (6.4-8.2)
[2018-07-07] MEDS ORDERED: SODIUM CHLORIDE IVPB ONE (10:00)
[2018-07-07] MEDS ORDERED: TRASTUZUMAB IVPB ONE (10:00)
[2018-07-07] MEDS ORDERED: SODIUM CHLORIDE 250 ML IV ONE (10:30)
[2018-07-07 13:47] VITALS: PULSE 52; TEMP 97.6
[2018-07-07] MEDS ORDERED: PORTA CATH FLUSH 10 ML IVPUSH ONE (13:50)
[2018-07-07 13:51] VITALS: BP 107/58
== END 2018-07-07 11:55 | disposition home or self-care (01) ==
LOC: JONCCHEMO 06:29 → J7W 10:10 → JONCCHEMO 11:55
PROVIDERS: ATTEND Internal Medicine Hematology & Oncology
DX: Z51.11 Encounter for antineoplastic chemotherapy (principal); C16.3 Malignant neoplasm of pyloric antrum
CPT/HCPCS: 36415; 80048; 80076; 83735; 85025; 96361; 96413; J9355

== ENCOUNTER 2018-07-29 05:43 | Day surgery (SDC) | payer OTHER, BC ==
[2018-07-29] MEDS ORDERED: TRASTUZUMAB IVPB ONE (08:00)
[2018-07-29] MEDS ORDERED: SODIUM CHLORIDE IVPB ONE (08:00)
[2018-07-29] MEDS ORDERED: SODIUM CHLORIDE 250 ML IV ONE (08:30)
[2018-07-29 08:45] LABS: BASO % 0.8 % (0-2.0); EOS % 1.9 % (0-4.5); HEMATOCRIT 35.9 % (32.4-45.2); HEMOGLOBIN 12.6 GM/dL (10.7-15.3); LYMPH % 42.9 % (8-40); MCH 32.6 pg (25.7-33.7); MCHC 35.2 g/dl (32.0-36.0); MEAN CELL VOLUME 92.4 fl (80-96); MEAN PLT VOLUME 8.4 fl (7.5-11.1); NEUT % 47.4 % (42.8-82.8); PLATELET COUNT 169 K/MM3 (134-434); RBC 3.89 M/mm3 (3.60-5.2); RDW 14.7 % (11.6-15.6); WHITE BLOOD COUNT 5.7 K/mm3 (4.0-10.0)
[2018-07-29 09:17] LABS: ALK PHOS 91 U/L (45-117); ANION GAP 5 MMOL/L (8-16); BILIRUBIN,TOTAL 0.5 mg/dL (0.2-1); BLOOD UREA NITROGEN 12 mg/dL (7-18); CALCIUM 8.8 mg/dL (8.5-10.1); CHLORIDE 104 mmol/L (98-107); CO2 32 mmol/L (21-32); CREATININE 0.9 mg/dL (0.55-1.3); GLUCOSE,RANDOM 95 mg/dL (74-106); POTASSIUM 3.3 mmol/L (3.5-5.1); SGOT/AST 29 U/L (15-37); SGPT/ALT 42 U/L (13-61); SODIUM 141 mmol/L (136-145); TOT PROT 7.8 g/dl (6.4-8.2)
[2018-07-29 09:18] LABS: ALBUMIN 4.1 g/dl (3.4-5.0); BILIRUBIN,DIRECT 0.1 mg/dL (0.0-0.2); BILIRUBIN,TOTAL 0.5 mg/dL (0.2-1); MAGNESIUM 2.1 mg/dL (1.8-2.4)
[2018-07-29 15:01] VITALS: BP 142/67; PULSE 53; TEMP 97.6
[2018-07-29] MEDS ORDERED: PORTA CATH FLUSH 10 ML IVPUSH ONE (15:01)
== END 2018-07-29 11:15 | disposition home or self-care (01) ==
LOC: JONCCHEMO 05:43 → J7W 09:20 → JONCCHEMO 11:15
PROVIDERS: ATTEND Internal Medicine Hematology & Oncology
DX: Z51.11 Encounter for antineoplastic chemotherapy (principal); C16.3 Malignant neoplasm of pyloric antrum
CPT/HCPCS: 36415; 80053; 80076; 83735; 85025; 96361; 96367; 96413; J9355

== ENCOUNTER 2018-08-18 06:15 | Day surgery (SDC) | payer OTHER, BC ==
[2018-08-18] MEDS ORDERED: SODIUM CHLORIDE IVPB ONE (08:00)
[2018-08-18] MEDS ORDERED: TRASTUZUMAB IVPB ONE (08:00)
[2018-08-18 08:52] LABS: BASO % 0.5 % (0-2.0); EOS % 1.7 % (0-4.5); HEMATOCRIT 37.4 % (32.4-45.2); HEMOGLOBIN 13.1 GM/dL (10.7-15.3); LYMPH % 40.8 % (8-40); MCH 32.7 pg (25.7-33.7); MEAN CELL VOLUME 93.3 fl (80-96); MEAN PLT VOLUME 8.5 fl (7.5-11.1); MONO % 6.9 % (3.8-10.2); NEUT % 50.1 % (42.8-82.8); PLATELET COUNT 176 K/MM3 (134-434); RBC 4.01 M/mm3 (3.60-5.2); RDW 14.6 % (11.6-15.6); WHITE BLOOD COUNT 6.6 K/mm3 (4.0-10.0)
[2018-08-18 09:31] LABS: ALBUMIN 4.4 g/dl (3.4-5.0); ALK PHOS 95 U/L (45-117); ANION GAP 7 MMOL/L (8-16); BILIRUBIN,DIRECT 0.1 mg/dL (0.0-0.2); BILIRUBIN,TOTAL 0.4 mg/dL (0.2-1); BLOOD UREA NITROGEN 13 mg/dL (7-18); CALCIUM 9.4 mg/dL (8.5-10.1); CHLORIDE 106 mmol/L (98-107); CO2 29 mmol/L (21-32); GLUCOSE,RANDOM 100 mg/dL (74-106); MAGNESIUM 2.4 mg/dL (1.8-2.4); POTASSIUM 3.6 mmol/L (3.5-5.1); SGOT/AST 22 U/L (15-37); SGPT/ALT 35 U/L (13-61); SODIUM 142 mmol/L (136-145); TOT PROT 8.3 g/dl (6.4-8.2)
[2018-08-18 16:47] VITALS: TEMP 97.3
[2018-08-18] MEDS ORDERED: PORTA CATH FLUSH 10 ML IVPUSH ONE (16:47)
[2018-08-18 16:48] VITALS: BP 133/65; PULSE 57
== END 2018-08-18 11:15 | disposition home or self-care (01) ==
LOC: JONCCHEMO 06:15 → J7W 10:11 → JONCCHEMO 11:15
PROVIDERS: ATTEND Internal Medicine Hematology & Oncology
DX: Z51.11 Encounter for antineoplastic chemotherapy (principal); C16.3 Malignant neoplasm of pyloric antrum
CPT/HCPCS: 36415; 80053; 80076; 82378; 83735; 85025; 96413; J9355

== ENCOUNTER 2018-09-09 07:07 | Day surgery (SDC) | payer OTHER, BC ==
[2018-09-09] MEDS ORDERED: TRASTUZUMAB IVPB ONE (10:00)
[2018-09-09] MEDS ORDERED: SODIUM CHLORIDE IVPB ONE (10:00)
[2018-09-09 10:24] LABS: BASO % 0.6 % (0-2.0); HEMATOCRIT 38.1 % (32.4-45.2); HEMOGLOBIN 12.9 GM/dL (10.7-15.3); LYMPH % 43.8 % (8-40); MCH 31.4 pg (25.7-33.7); MCHC 33.8 g/dl (32.0-36.0); MEAN CELL VOLUME 92.8 fl (80-96); MEAN PLT VOLUME 8.3 fl (7.5-11.1); MONO % 6.6 % (3.8-10.2); PLATELET COUNT 181 K/MM3 (134-434); RDW 14.9 % (11.6-15.6); WHITE BLOOD COUNT 6.7 K/mm3 (4.0-10.0)
[2018-09-09 10:57] LABS: ALBUMIN 4.4 g/dl (3.4-5.0); ALK PHOS 89 U/L (45-117); ANION GAP 3 MMOL/L (8-16); BILIRUBIN,TOTAL 0.6 mg/dL (0.2-1); BLOOD UREA NITROGEN 15 mg/dL (7-18); CALCIUM 9.7 mg/dL (8.5-10.1); CHLORIDE 105 mmol/L (98-107); CO2 31 mmol/L (21-32); CREATININE 0.9 mg/dL (0.55-1.3); GLUCOSE,RANDOM 93 mg/dL (74-106); POTASSIUM 3.6 mmol/L (3.5-5.1); SGOT/AST 22 U/L (15-37); SGPT/ALT 37 U/L (13-61); SODIUM 139 mmol/L (136-145); TOT PROT 8.8 g/dl (6.4-8.2)
[2018-09-09 10:58] LABS: ALBUMIN 4.4 g/dl (3.4-5.0); BILIRUBIN,DIRECT 0.1 mg/dL (0.0-0.2); BILIRUBIN,TOTAL 0.6 mg/dL (0.2-1); MAGNESIUM 2.7 mg/dL (1.8-2.4); TOT PROT 8.7 g/dl (6.4-8.2)
[2018-09-09 14:13] VITALS: TEMP 98
[2018-09-09 14:24] VITALS: BP 115/54; PULSE 53
[2018-09-09] MEDS ORDERED: PORTA CATH FLUSH 10 ML IVPUSH ONE (14:24)
== END 2018-09-09 13:00 | disposition home or self-care (01) ==
LOC: JONCCHEMO 07:07 → J7W 11:11 → JONCCHEMO 13:00
PROVIDERS: ATTEND Internal Medicine Hematology & Oncology
DX: Z51.11 Encounter for antineoplastic chemotherapy (principal); C16.3 Malignant neoplasm of pyloric antrum
CPT/HCPCS: 36415; 80053; 80076; 82378; 83735; 85025; 96413; J9355

== ENCOUNTER 2018-09-29 07:01 | Day surgery (SDC) | payer OTHER, BC ==
[2018-09-29] MEDS ORDERED: TRASTUZUMAB IVPB ONE (08:00)
[2018-09-29] MEDS ORDERED: SODIUM CHLORIDE IVPB ONE (08:00)
[2018-09-29 09:03] LABS: BASO % 0.3 % (0-2.0); EOS % 1.4 % (0-4.5); HEMATOCRIT 36.8 % (32.4-45.2); HEMOGLOBIN 12.4 GM/dL (10.7-15.3); MCH 31.4 pg (25.7-33.7); MCHC 33.6 g/dl (32.0-36.0); MEAN CELL VOLUME 93.4 fl (80-96); MEAN PLT VOLUME 8.1 fl (7.5-11.1); MONO % 6.9 % (3.8-10.2); NEUT % 46.4 % (42.8-82.8); PLATELET COUNT 170 K/MM3 (134-434); RBC 3.94 M/mm3 (3.60-5.2); RDW 14.8 % (11.6-15.6); WHITE BLOOD COUNT 6.5 K/mm3 (4.0-10.0)
[2018-09-29 09:34] LABS: ANION GAP 4 MMOL/L (8-16); BLOOD UREA NITROGEN 12 mg/dL (7-18); CALCIUM 9.6 mg/dL (8.5-10.1); CHLORIDE 106 mmol/L (98-107); CO2 31 mmol/L (21-32); CREATININE 0.9 mg/dL (0.55-1.3); GLUCOSE,RANDOM 97 mg/dL (74-106); MAGNESIUM 2.3 mg/dL (1.8-2.4); SODIUM 142 mmol/L (136-145)
[2018-09-29 09:35] LABS: ALBUMIN 4.2 g/dl (3.4-5.0); ALK PHOS 82 U/L (45-117); BILIRUBIN,DIRECT 0.1 mg/dL (0.0-0.2); BILIRUBIN,TOTAL 0.6 mg/dL (0.2-1); SGOT/AST 24 U/L (15-37); SGPT/ALT 34 U/L (13-61); TOT PROT 7.9 g/dl (6.4-8.2)
[2018-09-29 14:53] VITALS: BP 134/65; TEMP 97.7
[2018-09-29] MEDS ORDERED: PORTA CATH FLUSH 10 ML IVPUSH ONE (14:53)
[2018-09-29 14:55] VITALS: PULSE 56
== END 2018-09-29 10:20 | disposition home or self-care (01) ==
LOC: JONCCHEMO 07:01 → J7W 09:27 → JONCCHEMO 10:20
PROVIDERS: ATTEND Internal Medicine Hematology & Oncology
DX: Z51.11 Encounter for antineoplastic chemotherapy (principal); C16.3 Malignant neoplasm of pyloric antrum
CPT/HCPCS: 36415; 80048; 80076; 82378; 83735; 85025; 96413; J9355

== ENCOUNTER 2018-10-21 07:08 | Day surgery (SDC) | payer OTHER, BC | END 2018-10-21 11:55 | disposition home or self-care (01) | LOC: JONCCHEMO 07:08 → J7W 10:28 → JONCCHEMO 11:55 ==

== ENCOUNTER 2018-11-10 07:12 | Day surgery (SDC) | payer OTHER, BC | END 2018-11-10 12:15 | disposition home or self-care (01) | LOC: JONCCHEMO 07:12 → J7W 10:48 → JONCCHEMO 12:15 ==

== ENCOUNTER 2018-12-01 07:05 | Day surgery (SDC) | payer OTHER, BC ==
[2018-12-01 09:15] LABS: BASO % 0.5 % (0-2.0); EOS % 1.3 % (0-4.5); HEMATOCRIT 36.4 % (32.4-45.2); HEMOGLOBIN 12.2 GM/dL (10.7-15.3); LYMPH % 41.1 % (8-40); MCH 31.1 pg (25.7-33.7); MCHC 33.5 g/dl (32.0-36.0); MEAN PLT VOLUME 8.3 fl (7.5-11.1); MONO % 7.2 % (3.8-10.2); NEUT % 49.9 % (42.8-82.8); PLATELET COUNT 188 K/MM3 (134-434); RBC 3.92 M/mm3 (3.60-5.2); RDW 14.9 % (11.6-15.6); WHITE BLOOD COUNT 6.1 K/mm3 (4.0-10.0)
[2018-12-01 09:41] LABS: ALBUMIN 4.1 g/dl (3.4-5.0); BILIRUBIN,DIRECT 0.1 mg/dL (0.0-0.2); BILIRUBIN,TOTAL 0.5 mg/dL (0.2-1); BLOOD UREA NITROGEN 18.1 mg/dL (7-18); CALCIUM 9.2 mg/dL (8.5-10.1); CREATININE 1.1 mg/dL (0.55-1.3); MAGNESIUM 2.4 mg/dL (1.8-2.4); POTASSIUM 3.6 mmol/L (3.5-5.1)
[2018-12-01] MEDS ORDERED: SODIUM CHLORIDE IVPB ONE (10:00)
[2018-12-01] MEDS ORDERED: TRASTUZUMAB IVPB ONE (10:00)
[2018-12-01 15:37] VITALS: TEMP 97.9
[2018-12-01] MEDS ORDERED: PORTA CATH FLUSH 10 ML IVPUSH ONE (15:37)
[2018-12-01 15:38] VITALS: BP 117/61; PULSE 49
== END 2018-12-01 11:10 | disposition home or self-care (01) ==
LOC: JONCCHEMO 07:05 → J7W 10:14 → JONCCHEMO 11:10
PROVIDERS: ATTEND Internal Medicine Hematology & Oncology
DX: Z51.11 Encounter for antineoplastic chemotherapy (principal); C16.3 Malignant neoplasm of pyloric antrum
CPT/HCPCS: 36415; 80048; 80076; 82378; 83735; 85025; 96413; J9355

== ENCOUNTER 2018-12-23 07:03 | Day surgery (SDC) | payer OTHER, BC ==
[2018-12-23 09:39] LABS: BASO % 0.8 % (0-2.0); EOS % 1.5 % (0-4.5); HEMATOCRIT 36.8 % (32.4-45.2); HEMOGLOBIN 12.5 GM/dL (10.7-15.3); MCH 31.6 pg (25.7-33.7); MCHC 33.9 g/dl (32.0-36.0); MEAN CELL VOLUME 93.4 fl (80-96); MEAN PLT VOLUME 7.6 fl (7.5-11.1); MONO % 5.6 % (3.8-10.2); NEUT % 50.1 % (42.8-82.8); PLATELET COUNT 189 K/MM3 (134-434); RBC 3.94 M/mm3 (3.60-5.2); RDW 14.6 % (11.6-15.6); WHITE BLOOD COUNT 5.8 K/mm3 (4.0-10.0)
[2018-12-23] MEDS ORDERED: TRASTUZUMAB IVPB ONE (10:00)
[2018-12-23] MEDS ORDERED: SODIUM CHLORIDE IVPB ONE (10:00)
[2018-12-23 10:05] LABS: ALBUMIN 4.2 g/dl (3.4-5.0); BILIRUBIN,DIRECT 0.1 mg/dL (0.0-0.2); BILIRUBIN,TOTAL 0.7 mg/dL (0.2-1); MAGNESIUM 2.6 mg/dL (1.8-2.4); POTASSIUM 3.9 mmol/L (3.5-5.1); TOT PROT 8.1 g/dl (6.4-8.2)
[2018-12-23 14:59] VITALS: TEMP 97.7
[2018-12-23] MEDS ORDERED: PORTA CATH FLUSH 10 ML IVPUSH ONE (14:59)
[2018-12-23 15:01] VITALS: BP 129/79; PULSE 52
== END 2018-12-23 13:30 | disposition home or self-care (01) ==
LOC: JONCCHEMO 07:03 → J7W 11:41 → JONCCHEMO 13:30
PROVIDERS: ATTEND Internal Medicine Hematology & Oncology
DX: Z51.11 Encounter for antineoplastic chemotherapy (principal); C16.3 Malignant neoplasm of pyloric antrum
CPT/HCPCS: 36415; 80048; 80076; 82378; 83735; 85025; 96413; J9355

== ENCOUNTER 2019-01-19 06:44 | Day surgery (SDC) | payer OTHER, BC ==
[~2019-01-19 06:44] MED LIST: SODIUM CHLORIDE IVPB ONE; TRASTUZUMAB IVPB ONE
[2019-01-19 08:43] LABS: BASO % 0.5 % (0-2.0); EOS % 1.5 % (0-4.5); HEMATOCRIT 37.5 % (32.4-45.2); HEMOGLOBIN 12.4 GM/dL (10.7-15.3); LYMPH % 39.1 % (8-40); MCHC 33.1 g/dl (32.0-36.0); MEAN CELL VOLUME 93.7 fl (80-96); MONO % 7.2 % (3.8-10.2); NEUT % 51.7 % (42.8-82.8); PLATELET COUNT 181 K/MM3 (134-434); RDW 14.2 % (11.6-15.6); WHITE BLOOD COUNT 5.8 K/mm3 (4.0-10.0)
[2019-01-19 09:10] LABS: BLOOD UREA NITROGEN 17.1 mg/dL (7-18); CREATININE 0.9 mg/dL (0.55-1.3)
[2019-01-19 09:11] LABS: ALBUMIN 4.1 g/dl (3.4-5.0); BILIRUBIN,DIRECT 0.1 mg/dL (0.0-0.2); BILIRUBIN,TOTAL 0.4 mg/dL (0.2-1); CALCIUM 9.4 mg/dL (8.5-10.1); MAGNESIUM 2.2 mg/dL (1.8-2.4); POTASSIUM 3.8 mmol/L (3.5-5.1)
[2019-01-19] MEDS ORDERED: TRASTUZUMAB IVPB ONE (10:00)
[2019-01-19] MEDS ORDERED: SODIUM CHLORIDE IVPB ONE (10:00)
[2019-01-19 14:27] VITALS: BP 146/78; PULSE 58; TEMP 98.1
[2019-01-19] MEDS ORDERED: PORTA CATH FLUSH 10 ML IVPUSH ONE (14:27)
== END 2019-01-19 11:45 | disposition home or self-care (01) ==
LOC: JONCCHEMO 06:44 → J7W 10:51 → JONCCHEMO 11:45
PROVIDERS: ATTEND Internal Medicine Hematology & Oncology
DX: Z51.11 Encounter for antineoplastic chemotherapy (principal); C16.3 Malignant neoplasm of pyloric antrum
CPT/HCPCS: 36415; 80048; 80076; 83735; 85025; 96413; J9355

== ENCOUNTER 2019-02-10 07:10 | Day surgery (SDC) | payer OTHER, BC ==
[2019-02-10 09:29] LABS: BASO % 0.4 % (0-2.0); EOS % 1.6 % (0-4.5); HEMATOCRIT 36.1 % (32.4-45.2); HEMOGLOBIN 12.1 GM/dL (10.7-15.3); LYMPH % 38.4 % (8-40); MCH 31.2 pg (25.7-33.7); MCHC 33.6 g/dl (32.0-36.0); MEAN CELL VOLUME 92.8 fl (80-96); MEAN PLT VOLUME 7.7 fl (7.5-11.1); MONO % 5.1 % (3.8-10.2); NEUT % 54.5 % (42.8-82.8); PLATELET COUNT 189 K/MM3 (134-434); RBC 3.89 M/mm3 (3.60-5.2); RDW 14.1 % (11.6-15.6); WHITE BLOOD COUNT 5.9 K/mm3 (4.0-10.0)
[2019-02-10 09:56] LABS: ALBUMIN 4.1 g/dl (3.4-5.0); BILIRUBIN,DIRECT 0.1 mg/dL (0.0-0.2); BILIRUBIN,TOTAL 0.7 mg/dL (0.2-1); BLOOD UREA NITROGEN 17.7 mg/dL (7-18); CALCIUM 9.5 mg/dL (8.5-10.1); MAGNESIUM 2.5 mg/dL (1.8-2.4); POTASSIUM 3.4 mmol/L (3.5-5.1)
[2019-02-10] MEDS ORDERED: SODIUM CHLORIDE IVPB ONE (10:00)
[2019-02-10] MEDS ORDERED: TRASTUZUMAB IVPB ONE (10:00)
[2019-02-10] MEDS ORDERED: POTASSIUM CHLORIDE TABS 20 MEQ TABLET.ER (FP) PO ONE (11:42)
[2019-02-10 16:36] VITALS: TEMP 97.8
[2019-02-10] MEDS ORDERED: PORTA CATH FLUSH 10 ML IVPUSH ONE (16:36)
[2019-02-10 16:37] VITALS: BP 153/74; PULSE 106
== END 2019-02-10 12:30 | disposition home or self-care (01) ==
LOC: JONCCHEMO 07:10 → J7W 11:07 → JONCCHEMO 12:30
PROVIDERS: ATTEND Internal Medicine Hematology & Oncology
DX: Z51.11 Encounter for antineoplastic chemotherapy (principal); C16.3 Malignant neoplasm of pyloric antrum; I10 Essential (primary) hypertension; E78.00 Pure hypercholesterolemia, unspecified; M19.90 Unspecified osteoarthritis, unspecified site
CPT/HCPCS: 36415; 80048; 80053; 80076; 82378; 83735; 85025; 96413; J9355

== ENCOUNTER 2019-03-02 05:50 | Day surgery (SDC) | payer OTHER, BC ==
[2019-03-02] MEDS ORDERED: SODIUM CHLORIDE IVPB ONE (10:00)
[2019-03-02] MEDS ORDERED: TRASTUZUMAB IVPB ONE (10:00)
[2019-03-02 10:56] LABS: BASO % 0.3 % (0-2.0); EOS % 1.5 % (0-4.5); HEMATOCRIT 35.5 % (32.4-45.2); HEMOGLOBIN 11.8 GM/dL (10.7-15.3); LYMPH % 44.4 % (8-40); MCH 30.9 pg (25.7-33.7); MCHC 33.1 g/dl (32.0-36.0); MEAN CELL VOLUME 93.2 fl (80-96); MEAN PLT VOLUME 8.4 fl (7.5-11.1); MONO % 7.2 % (3.8-10.2); NEUT % 46.6 % (42.8-82.8); PLATELET COUNT 161 K/MM3 (134-434); RBC 3.82 M/mm3 (3.60-5.2); RDW 14.8 % (11.6-15.6); WHITE BLOOD COUNT 5.2 K/mm3 (4.0-10.0)
[2019-03-02 11:32] LABS: BILIRUBIN,DIRECT 0.1 mg/dL (0.0-0.2); BILIRUBIN,TOTAL 0.3 mg/dL (0.2-1); BLOOD UREA NITROGEN 14.7 mg/dL (7-18); CALCIUM 9.1 mg/dL (8.5-10.1); CREATININE 0.9 mg/dL (0.55-1.3); MAGNESIUM 2.6 mg/dL (1.8-2.4); POTASSIUM 3.8 mmol/L (3.5-5.1); TOT PROT 7.4 g/dl (6.4-8.2)
[2019-03-02 15:59] VITALS: BP 144/65; PULSE 60; TEMP 98.1
[2019-03-02] MEDS ORDERED: PORTA CATH FLUSH 10 ML IVPUSH ONE (16:00)
== END 2019-03-02 13:00 | disposition home or self-care (01) ==
LOC: JONCCHEMO 05:50 → J7W 11:39 → JONCCHEMO 13:00
PROVIDERS: ATTEND Internal Medicine Hematology & Oncology
DX: Z51.11 Encounter for antineoplastic chemotherapy (principal); C16.3 Malignant neoplasm of pyloric antrum; I10 Essential (primary) hypertension
CPT/HCPCS: 36415; 80048; 80076; 82378; 83735; 85025; 96413; J9355

== ENCOUNTER 2019-03-23 06:40 | Day surgery (SDC) | payer OTHER, BC ==
[2019-03-23] MEDS ORDERED: SODIUM CHLORIDE IVPB ONE (10:00)
[2019-03-23] MEDS ORDERED: TRASTUZUMAB IVPB ONE (10:00)
[2019-03-23 11:11] LABS: BASO % 0.8 % (0-2.0); EOS % 1.3 % (0-4.5); HEMATOCRIT 37.2 % (32.4-45.2); HEMOGLOBIN 12.2 GM/dL (10.7-15.3); LYMPH % 47.1 % (8-40); MCH 30.6 pg (25.7-33.7); MCHC 32.8 g/dl (32.0-36.0); MEAN CELL VOLUME 93.3 fl (80-96); MEAN PLT VOLUME 8.8 fl (7.5-11.1); MONO % 6.3 % (3.8-10.2); NEUT % 44.5 % (42.8-82.8); PLATELET COUNT 198 K/MM3 (134-434); RBC 3.99 M/mm3 (3.60-5.2); RDW 14.8 % (11.6-15.6); WHITE BLOOD COUNT 5.6 K/mm3 (4.0-10.0)
[2019-03-23 11:37] LABS: ALBUMIN 4.1 g/dl (3.4-5.0); BILIRUBIN,TOTAL 0.5 mg/dL (0.2-1); BLOOD UREA NITROGEN 19.5 mg/dL (7-18); CALCIUM 9.4 mg/dL (8.5-10.1); MAGNESIUM 2.4 mg/dL (1.8-2.4); POTASSIUM 3.9 mmol/L (3.5-5.1); TOT PROT 7.9 g/dl (6.4-8.2)
[2019-03-23] MEDS ORDERED: amLODIPine BESYLATE 5 MG TABLET (FP) PO PRN (11:46)
[2019-03-23 17:06] VITALS: TEMP 97.4
[2019-03-23 17:07] VITALS: BP 143/74; PULSE 58
== END 2019-03-23 13:15 | disposition home or self-care (01) ==
LOC: JONCCHEMO 06:40 → J7W 11:28 → JONCCHEMO 13:15
PROVIDERS: ATTEND Internal Medicine Hematology & Oncology
DX: Z51.11 Encounter for antineoplastic chemotherapy (principal); C16.3 Malignant neoplasm of pyloric antrum
CPT/HCPCS: 36415; 80053; 82378; 83735; 85025; 96413; J9355

== ENCOUNTER 2019-04-14 07:19 | Day surgery (SDC) | payer OTHER, BC ==
[2019-04-14 09:11] LABS: BASO % 0.6 % (0-2.0); EOS % 1.9 % (0-4.5); HEMATOCRIT 36.4 % (32.4-45.2); HEMOGLOBIN 12.1 GM/dL (10.7-15.3); LYMPH % 40.4 % (8-40); MCHC 33.1 g/dl (32.0-36.0); MEAN CELL VOLUME 93.6 fl (80-96); MEAN PLT VOLUME 8.2 fl (7.5-11.1); MONO % 7.4 % (3.8-10.2); NEUT % 49.7 % (42.8-82.8); PLATELET COUNT 183 K/MM3 (134-434); RBC 3.89 M/mm3 (3.60-5.2); RDW 14.8 % (11.6-15.6); WHITE BLOOD COUNT 6.4 K/mm3 (4.0-10.0)
[2019-04-14 09:48] LABS: BILIRUBIN,TOTAL 0.6 mg/dL (0.2-1); BLOOD UREA NITROGEN 11.1 mg/dL (7-18); CALCIUM 8.8 mg/dL (8.5-10.1); CREATININE 0.9 mg/dL (0.55-1.3); MAGNESIUM 2.4 mg/dL (1.8-2.4); POTASSIUM 3.6 mmol/L (3.5-5.1); TOT PROT 7.7 g/dl (6.4-8.2)
[2019-04-14] MEDS ORDERED: SODIUM CHLORIDE IVPB ONE (10:00)
[2019-04-14] MEDS ORDERED: TRASTUZUMAB IVPB ONE (10:00)
[2019-04-14 13:51] VITALS: TEMP 98
[2019-04-14] MEDS ORDERED: PORTA CATH FLUSH 10 ML IVPUSH ONE (13:51)
[2019-04-14 13:52] VITALS: BP 135/59; PULSE 53
== END 2019-04-14 11:42 | disposition home or self-care (01) ==
LOC: JONCCHEMO 07:19 → J7W 10:04 → JONCCHEMO 11:42
PROVIDERS: ATTEND Internal Medicine Hematology & Oncology
DX: Z51.11 Encounter for antineoplastic chemotherapy (principal); C16.3 Malignant neoplasm of pyloric antrum
CPT/HCPCS: 36415; 80053; 82378; 83735; 85025; 96413; J9355

== ENCOUNTER 2019-05-05 07:04 | Day surgery (SDC) | payer OTHER, BC ==
[2019-05-05 09:25] LABS: BASO % 0.7 % (0-2.0); EOS % 1.3 % (0-4.5); HEMATOCRIT 34.9 % (32.4-45.2); HEMOGLOBIN 11.8 GM/dL (10.7-15.3); LYMPH % 36.2 % (8-40); MCH 31.2 pg (25.7-33.7); MCHC 33.8 g/dl (32.0-36.0); MEAN CELL VOLUME 92.4 fl (80-96); MEAN PLT VOLUME 7.7 fl (7.5-11.1); MONO % 6.9 % (3.8-10.2); NEUT % 54.9 % (42.8-82.8); PLATELET COUNT 178 K/MM3 (134-434); RBC 3.77 M/mm3 (3.60-5.2); RDW 15.1 % (11.6-15.6); WHITE BLOOD COUNT 6.1 K/mm3 (4.0-10.0)
[2019-05-05 09:59] LABS: ALBUMIN 3.9 g/dl (3.4-5.0); BILIRUBIN,TOTAL 0.6 mg/dL (0.2-1); BLOOD UREA NITROGEN 18.4 mg/dL (7-18); CALCIUM 9.1 mg/dL (8.5-10.1); CREATININE 1.1 mg/dL (0.55-1.3); MAGNESIUM 2.1 mg/dL (1.8-2.4); POTASSIUM 3.6 mmol/L (3.5-5.1); TOT PROT 7.5 g/dl (6.4-8.2)
[2019-05-05] MEDS ORDERED: TRASTUZUMAB-ANNS 440 MG in SODIUM CHLORIDE 250 ML IVPB ONE (10:00)
[2019-05-05] MEDS ORDERED: PORTA CATH FLUSH 10 ML IVPUSH ONE (11:38)
[2019-05-05 12:16] VITALS: BP 117/52; PULSE 65
[2019-05-05 12:19] VITALS: TEMP 98
== END 2019-05-05 12:10 | disposition home or self-care (01) ==
LOC: JONCCHEMO 07:04 → J7W 10:49 → JONCCHEMO 12:10
PROVIDERS: ATTEND Internal Medicine Hematology & Oncology
DX: Z51.11 Encounter for antineoplastic chemotherapy (principal); C16.3 Malignant neoplasm of pyloric antrum
CPT/HCPCS: 36415; 80053; 83735; 85025; 96413; Q5117

== ENCOUNTER 2019-05-25 07:12 | Day surgery (SDC) | payer OTHER ==
[2019-05-25 08:47] LABS: BASO % 0.5 % (0-2.0); EOS % 1.9 % (0-4.5); HEMATOCRIT 37.2 % (32.4-45.2); HEMOGLOBIN 12.6 GM/dL (10.7-15.3); LYMPH % 38.8 % (8-40); MCH 31.6 pg (25.7-33.7); MCHC 33.8 g/dl (32.0-36.0); MEAN CELL VOLUME 93.5 fl (80-96); MEAN PLT VOLUME 8.4 fl (7.5-11.1); NEUT % 51.8 % (42.8-82.8); PLATELET COUNT 189 K/MM3 (134-434); RBC 3.98 M/mm3 (3.60-5.2); RDW 14.3 % (11.6-15.6); WHITE BLOOD COUNT 5.9 K/mm3 (4.0-10.0)
[2019-05-25 09:13] LABS: BILIRUBIN,TOTAL 0.5 mg/dL (0.2-1); BLOOD UREA NITROGEN 11.2 mg/dL (7-18); CALCIUM 9.5 mg/dL (8.5-10.1); CREATININE 0.9 mg/dL (0.55-1.3); MAGNESIUM 2.3 mg/dL (1.8-2.4); POTASSIUM 3.6 mmol/L (3.5-5.1); TOT PROT 8.1 g/dl (6.4-8.2)
[2019-05-25] MEDS ORDERED: TRASTUZUMAB-ANNS 440 MG in SODIUM CHLORIDE 250 ML IVPB ONE (10:00)
[2019-05-25 13:43] VITALS: BP 114/60; PULSE 52; TEMP 98.1
[2019-05-25] MEDS ORDERED: PORTA CATH FLUSH 10 ML IVPUSH ONE (13:44)
== END 2019-05-25 10:50 | disposition home or self-care (01) ==
LOC: JONCCHEMO 07:12 → J7W 09:22 → JONCCHEMO 10:50
PROVIDERS: ATTEND Internal Medicine Hematology & Oncology
DX: Z51.11 Encounter for antineoplastic chemotherapy (principal); C16.3 Malignant neoplasm of pyloric antrum; I10 Essential (primary) hypertension; E78.00 Pure hypercholesterolemia, unspecified; M19.90 Unspecified osteoarthritis, unspecified site
CPT/HCPCS: 36415; 80053; 82378; 83735; 85025; 96413; Q5117

== ENCOUNTER 2019-07-06 07:11 | Day surgery (SDC) | payer OTHER, BC ==
[2019-07-06 08:32] LABS: BASO % 0.5 % (0-2.0); EOS % 2.3 % (0-4.5); HEMATOCRIT 35.1 % (32.4-45.2); HEMOGLOBIN 11.7 GM/dL (10.7-15.3); MCH 30.6 pg (25.7-33.7); MCHC 33.4 g/dl (32.0-36.0); MEAN CELL VOLUME 91.4 fl (80-96); MEAN PLT VOLUME 8.1 fl (7.5-11.1); NEUT % 46.2 % (42.8-82.8); PLATELET COUNT 204 K/MM3 (134-434); RBC 3.83 M/mm3 (3.60-5.2); RDW 14.7 % (11.6-15.6); WHITE BLOOD COUNT 5.2 K/mm3 (4.0-10.0)
[2019-07-06 09:04] LABS: ALBUMIN 3.9 g/dl (3.4-5.0); BILIRUBIN,TOTAL 0.5 mg/dL (0.2-1); BLOOD UREA NITROGEN 8.4 mg/dL (7-18); CALCIUM 9.8 mg/dL (8.5-10.1); CREATININE 0.9 mg/dL (0.55-1.3); MAGNESIUM 2.4 mg/dL (1.8-2.4); POTASSIUM 3.5 mmol/L (3.5-5.1); TOT PROT 8.4 g/dl (6.4-8.2)
[2019-07-06] MEDS ORDERED: TRASTUZUMAB-ANNS 440 MG in SODIUM CHLORIDE 250 ML IVPB ONE (10:00)
[2019-07-06 16:05] VITALS: TEMP 97.6
[2019-07-06 16:09] VITALS: BP 125/62; PULSE 54
[2019-07-06] MEDS ORDERED: PORTA CATH FLUSH 10 ML IVPUSH ONE (16:09)
== END 2019-07-06 11:00 | disposition home or self-care (01) ==
LOC: JONCCHEMO 07:11 → J7W 09:33 → JONCCHEMO 11:00
PROVIDERS: ATTEND Internal Medicine Hematology & Oncology
DX: Z11.1 Encounter for screening for respiratory tuberculosis (principal); C16.3 Malignant neoplasm of pyloric antrum
CPT/HCPCS: 36415; 80053; 82378; 83735; 85025; 96413; Q5117

== ENCOUNTER 2019-07-28 05:35 | Day surgery (SDC) | payer OTHER, BC ==
[2019-07-28 09:41] LABS: BASO % 0.6 % (0-2.0); EOS % 1.3 % (0-4.5); HEMATOCRIT 36.2 % (32.4-45.2); HEMOGLOBIN 12.3 GM/dL (10.7-15.3); LYMPH % 39.8 % (8-40); MCH 31.3 pg (25.7-33.7); MCHC 34.1 g/dl (32.0-36.0); MEAN CELL VOLUME 91.9 fl (80-96); MEAN PLT VOLUME 7.9 fl (7.5-11.1); MONO % 7.1 % (3.8-10.2); NEUT % 51.2 % (42.8-82.8); PLATELET COUNT 209 K/MM3 (134-434); RBC 3.94 M/mm3 (3.60-5.2); RDW 15.5 % (11.6-15.6); WHITE BLOOD COUNT 5.8 K/mm3 (4.0-10.0)
[2019-07-28] MEDS ORDERED: TRASTUZUMAB-ANNS 440 MG in SODIUM CHLORIDE 250 ML IVPB ONE (10:00)
[2019-07-28 10:13] LABS: BILIRUBIN,TOTAL 0.5 mg/dL (0.2-1); BLOOD UREA NITROGEN 12.4 mg/dL (7-18); CALCIUM 9.2 mg/dL (8.5-10.1); MAGNESIUM 2.2 mg/dL (1.8-2.4); POTASSIUM 3.2 mmol/L (3.5-5.1); TOT PROT 8.3 g/dl (6.4-8.2)
[2019-07-28 14:01] LABS: INR 1.05 (0.83-1.09); PROTHROMBIN TIME (PATIENT) 12.4 SEC (9.7-13.0)
[2019-07-28 14:04] LABS: ACTIVATED PTT 43.1 SECONDS (25.2-36.5)
[2019-07-28 14:19] VITALS: BP 104/55; PULSE 57; TEMP 98.3
[2019-07-28] MEDS ORDERED: PORTA CATH FLUSH 10 ML IVPUSH ONE (14:27)
== END 2019-07-28 13:20 | disposition home or self-care (01) ==
LOC: JONCCHEMO 05:35 → J7W 11:16 → JONCCHEMO 13:20
PROVIDERS: ATTEND Internal Medicine Hematology & Oncology
DX: Z51.11 Encounter for antineoplastic chemotherapy (principal); C16.3 Malignant neoplasm of pyloric antrum; I10 Essential (primary) hypertension; E78.00 Pure hypercholesterolemia, unspecified; M19.90 Unspecified osteoarthritis, unspecified site
CPT/HCPCS: 36415; 80053; 83735; 85025; 85610; 85730; 96413; Q5117

== ENCOUNTER 2019-07-30 07:32 | Day surgery (SDC) | payer OTHER, BC ==
[2019-07-29 18:01] VITALS: BMI 32.2
[2019-07-30 08:13] LABS: INR 1.03 (0.83-1.09); PROTHROMBIN TIME (PATIENT) 12.2 SEC (9.7-13.0)
[2019-07-30 13:17] VITALS: BP 141/81; PULSE 78; TEMP 97.2
--- NOTE | 2019-08-04 14:46 | PATH ---
Surgical Pathology Report Patient Name: KASEY HUYNH [facility]. Rec. #: [id number] /Age/Gender: 1945 (Age: 73) / F Account: [id number] Location: RADIOLOGY INTER Taken: 07/30/2019 Received: 07/30/2019 Reported: 08/04/2019 Physicians: Alberto Gallardo M.D. Vishnu Rolle M.D. Specimen(s) Received LYMPH NODE, AXILLA, LEFT, CORE BIOPSY Clinical History Gastric cancer Final Diagnosis LYMPH NODE, AXILLA, LEFT, CORE BIOPSY: LYMPHOID TISSUE NEGATIVE FOR CARCINOMA ON H&E AND CONFIRMED BY CYTOKERATIN AE1/3. SEE COMMENT. Comment: Concurrent flow cytometry performed and interpreted at [facility] ([id number]) shows no immunophenotypic evidence of a lymphoproliferative disorder (viability ~ 33%). Prior history of gastric cancer noted. Suggest clinical and radiologic correlation. Electronically Signed Joann Marino M.D. Gross Description Received in formalin labeled "left axilla biopsy," is a 1.0 x 0.3 x 0.1 cm aggregate of lowe-brown, irregular to cylindrical portions of fibroadipose tissue. The formalin is filtered and the specimen is entirely submitted in one cassette. There is additional tissue received in RPMI solution which is sent for flow cytometry. /07/30/2019 saudi07/30/2019
== END 2019-07-30 13:19 | disposition home or self-care (01) ==
LOC: JRADIR 07:32
PROVIDERS: ATTEND Internal Medicine Hematology & Oncology
PROC: BH41ZZZ Ultrasonography of Left Breast (ICD-10-PCS; principal; 2019-07-30)
PROC: 07B63ZX Excision of Left Axillary Lymphatic, Percutaneous Approach, Diagnostic (ICD-10-PCS; 2019-07-30)
DX: R59.0 Localized enlarged lymph nodes (principal)
CPT/HCPCS: 36415; 38505; 76942-TC; 85610; 88305-TC; 88342-TC